=== PATIENT | male | born 1965 | race Caucasian/White ===

== ENCOUNTER 2019-11-04 18:02 | Outpatient (REF) | payer MEDICARE, MEDICAID, SELFPAY ==
[2019-11-06 08:54] LABS: PSA, Diagnostic 3.6 ng/mL (0.0-3.5)
== END 2019-11-04 18:22 ==
LOC: NCHCN 18:02
PROVIDERS: Visit Provider Physician Assistant
DX: R97.20 Elevated prostate specific antigen [PSA] (principal)
CPT/HCPCS: 84153

== ENCOUNTER 2020-08-24 09:16 | Outpatient (REF) | payer MEDICARE, MEDICAID, SELFPAY ==
[2020-08-24 14:23] LABS: ALT 36 U/L (16-63); AST 17 U/L (15-37); Albumin 3.7 g/dL (3.4-5.0); Alkaline Phosphatase 110 U/L (46-116); Anion Gap 10.8 mmol/L (3-11); BUN 12 mg/dL (7-18); Bilirubin, Total 0.7 mg/dL (0.2-1.0); CO2 26.2 mmol/L (21.0-32.0); Calculated LDL 60 mg/dL (<100); Chloride 103 mmol/L (98-107); Cholesterol 135 mg/dL (<200); Glucose 98 mg/dL (74-106); HDL Cholesterol 27 mg/dL (40-60); Potassium 4.3 mmol/L (3.5-5.1); Sodium 140 mmol/L (136-145); Total Protein 7.3 g/dL (6.4-8.2); Triglyceride 244 mg/dL (<150)
[2020-08-24 14:26] LABS: Hemoglobin A1C 6.8 % (<5.7)
[2020-08-24 22:31] LABS: PSA, Diagnostic 4.4 ng/mL (0.0-3.5)
== END 2020-08-24 09:17 | disposition home or self-care (01) ==
LOC: NCHCN 09:16
PROVIDERS: PCP Physician Assistant; Visit Provider Physician Assistant
DX: E11.9 Type 2 diabetes mellitus without complications (principal); E78.5 Hyperlipidemia, unspecified; R97.20 Elevated prostate specific antigen [PSA]
CPT/HCPCS: 80053; 80061; 83036; 84153

== ENCOUNTER 2021-02-28 19:04 | Outpatient (REF) | payer MEDICARE, MEDICAID, SELFPAY | END 2021-02-28 19:05 | disposition home or self-care (01) | LOC: NCHCN 19:04 | PROVIDERS: PCP Physician Assistant; Visit Provider Physician Assistant | DX: R97.20 Elevated prostate specific antigen [PSA] (principal) | CPT/HCPCS: 84153 ==

== ENCOUNTER 2021-08-30 18:21 | Outpatient (REF) | payer MEDICARE, MEDICAID, SELFPAY ==
[2021-08-30 16:44] LABS: Hemoglobin A1C 6.6 % (<5.7)
[2021-08-30 22:51] LABS: PSA, Diagnostic 6.5 ng/mL (<=3.5)
[2021-08-31 09:50] LABS: Hepatitis C Ab w Rflx HCV PCR Negative (Negative)
[2021-08-31 10:03] LABS: HIV-1/2 Ag & Ab Screen Negative (Negative)
== END 2021-08-30 18:22 | disposition home or self-care (01) ==
LOC: NCHCN 18:21
PROVIDERS: PCP Physician Assistant; Visit Provider Physician Assistant
DX: R97.20 Elevated prostate specific antigen [PSA] (principal); Z11.4 Encounter for screening for human immunodeficiency virus [HIV]; Z11.59 Encounter for screening for other viral diseases; E11.9 Type 2 diabetes mellitus without complications
CPT/HCPCS: 86803; 87389; 83036; 84153

== ENCOUNTER → 2021-10-24 08:58 | Outpatient (BNVA) | payer MEDICARE, MEDICAID, SELFPAY | PROVIDERS: PCP Physician Assistant; Referring Provider Physician Assistant; Visit Provider Nurse Practitioner Gerontology | DX: N40.1 Benign prostatic hyperplasia with lower urinary tract symptoms (principal); R35.0 Frequency of micturition; F84.0 Autistic disorder; R97.20 Elevated prostate specific antigen [PSA] | CPT/HCPCS: 51798; 81003; 99205 ==

== ENCOUNTER 2021-11-09 03:22 | Outpatient (CLI) | payer MEDICARE, MEDICAID, SELFPAY ==
[2021-11-09 08:44] LABS: CREATININE 0.9 mg/dL (0.70-1.30)
== END 2021-11-09 03:23 | disposition home or self-care (01) ==
LOC: LBO 03:23
PROVIDERS: PCP Physician Assistant; Visit Provider Nurse Practitioner Gerontology
DX: R97.20 Elevated prostate specific antigen [PSA] (principal); Z01.812 Encounter for preprocedural laboratory examination
CPT/HCPCS: 36415; 82565

== ENCOUNTER → 2021-12-13 09:31 | Outpatient (BNVA) | payer MEDICARE, MEDICAID, SELFPAY | PROVIDERS: PCP Physician Assistant; Referring Provider Physician Assistant; Visit Provider Surgery | DX: Z12.11 Encounter for screening for malignant neoplasm of colon (principal); Z12.12 Encounter for screening for malignant neoplasm of rectum; R19.5 Other fecal abnormalities ==

== ENCOUNTER 2021-12-26 09:18 | Day surgery (SDC) | payer MEDICARE, MEDICAID, SELFPAY ==
--- NOTE | 2021-12-26 04:36 | W.ANESPRE ---
General Info Date of Service Date Performed: 12/26/21 Height: 5 ft 6 in Weight: 77.224 kg Body Mass Index (BMI): 27.4 Surgical Procedure: Operation Date: 12/26/21 11:05 Proposed Procedure Side Surgeon p Colonoscopy April Chandra MD Meds Allergies and Home Medications Allergies Allergy/AdvReac Type Severity Reaction Status Date / Time Penicillins Allergy Unknown Unverified 12/26/21 09:00 Home Medication Medication Instructions Recorded atorvastatin 20 mg tablet 20 mg PO DAILY 09/02/21 calcium carb-vit D3-minerals 600 2 tab PO DAILY 09/02/21 mg calcium-400 unit tablet cetirizine 10 mg capsule (All Day 10 mg PO DAILY PRN 09/02/21 Allergy (cetirizine)) citalopram 40 mg tablet 40 mg PO DAILY 09/02/21 metformin 500 mg tablet 500 mg PO BID 09/02/21 polyethylene glycol 3350 17 17 g PO DAILY PRN 09/02/21 gram/dose oral powder (Miralax) bisacodyl 5 mg tablet,delayed 5 mg PO ONCE #4 tabs 12/13/21 release (Dulcolax (bisacodyl)) polyethylene glycol 3350 17 17 g PO ONCE #238 grams 12/13/21 gram/dose oral powder ondansetron HCl 4 mg tablet 4 mg PO Q8H PRN nausea and 12/23/21 vomiting #3 tabs Current Visit Medications: Current Medications Generic Name Dose Route Start Last Admin Trade Name Freq PRN Reason Stop Dose Admin Ringer's Solution 1,000 mls @ 80 mls/hr 12/26/21 06:00 IV 01/22/22 23:59 INFUSION HANNA IV Miscellaneous Supplies 1 each 12/26/21 06:00 Iv Access IV 01/22/22 23:59 DIRECTED HANNA Sodium Chloride 0 ml 12/26/21 06:00 Normal Saline Flush 10 Ml Syr IV 01/22/22 23:59 PRN PRN Sodium Chloride 0 ml 12/26/21 06:00 Normal Saline 10 Ml Vial IJ 01/22/22 23:59 DIRECTED PRN Sterile Water 0 ml 12/26/21 06:00 Water,Injection,Sterile 10 Ml Vial IJ 01/22/22 23:59 DIRECTED PRN PFSH Active Problems Active Problems: Problem Status Onset Code Encounter for colorectal cancer screening Z12.11, Z12.12 Positive colorectal cancer screening using Cologuard test R19.5 Medical History Medical History Autistic disorder Diabetes Elevated PSA AWA (generalized anxiety disorder) GERD (gastroesophageal reflux disease) HLD (hyperlipidemia) Onychomycosis Sleep apnea Surgical History Surgical History (Updated 12/26/21 @ 09:44 by Eneida Hernandez) History of appendectomy Tobacco Smoking/Tobacco Use Status: Never Alcohol Alcohol Intake: current Substance Use Substance use type: does not use Vital Signs and Lab Results Vital Signs Most Recent Vital Signs in EMR: Temp Pulse Resp BP Pulse Ox 36.5 C 67 18 136/84 100 12/26/21 09:20 12/26/21 09:20 12/26/21 09:20 12/26/21 09:20 12/26/21 09:20 Lab Results Blood Type / Crossmatch: No Data to Display Complete Blood Count: No Data to Display Complete Metabolic Panel: No Data to Display Liver Function Panel: No Data to Display Coagulation Panel: No Data to Display Cardiac Panel: No Data to Display Arterial Blood Gas: No Data to Display Venous Blood Gas: No Data to Display Pancreas Panel: No Data to Display Thyroid Panel: No Data to Display Infectious Disease: No Data to Display Blood Cultures: No Data to Display Toxicology Panel: No Data to Display Anesthesia Assessment and Plan Anesthesia History Personal History: Unknown Anesthesia History Family History: Family History Unknown Exercise Tolerance Exercise Tolerance: Metabolic Equivalents>4 Cardiac & Pulmonary Exam Cardiac Exam: Normal S1/S2 Heart Sounds Pulmonary Exam: Clear Bilateral Breath Sounds Implantable Cardiac Device Does patient have a Pacemaker or an ICD?: No Airway Exam Known Difficult Airway: No Mallampati Class: 2 Mouth Opening: Narrow (< 3cm) Thyromental Distance: Greater than 3 cm Neck Range of Motion: Full ROM Neck Circumference: Normal Teeth Condition: Normal Dentition ASA Classification ASA Score: ASA 2 Emergency Case?: No NPO Status NPO Status: NPO Clears >2 hours, Solids >8 hours Anesthesia Plan Resuscitation Status: Full Code Anesthesia Technique: General Anesthesia Airway Planned: Natural Airway Monitors Used: Standard Monitors Preoperative Comments:: 56 yo male for colo. Sig PMHx: autistic, DM (last A1c 6.6, metformin), GERD, SANDY,
--- NOTE | 2021-12-26 06:45 | COLE_ITS ---
Colonoscopy Report Date of procedure: 12/26/21 Pre-op diagnosis general: + Cologuard, screening Post-op diagnosis procedure note: other (polyps) Procedure: Colonoscopy with polypectomy Surgeon: April Chandra Anesthesia Type: General:No Airway Estimated blood loss (mL): 5 Pathology: other (Ascending polyps x2, Transverse polyp, descending polyp, sigmoid polyps x2, rectal polyp x2) Complications: None Disposition: same day Indications: The patient? is a pleasant? 56-year-old male who is here to discuss a screening colonoscopy.? He had a Positive Cologuard test.? He denies any unintentional weight loss or family history of colon cancer.? He has been having loose stools but has to strain to be able to have a bowel movement.? There is bright red blood noted with every bowel movement by his caregiver.? The procedure and risks were discussed with his guardian, Melissa Morley ( ).? The prep was reviewed in detail.? Risks, benefits and complications have been reviewed. Complications include but are not limited to bleeding, pain, perforation, missed small lesion/polyp, sore throat, aspiration and adverse reaction to the medications. Questions were entertained and answered to their satisfaction and they wished to proceed. No guarantees were given or implied. Prep: Miralax/Dulcolax Procedure Start Time: 11:06 Procedure End Time: 11:39 Retraction Time: 16 minutes Findings: Multiple polyps Procedure Description: After informed consent was obtained the patient was taken to the procedure room and placed in a left decubitous position. Monitors were applied and a time out was done. The patients name, date of , procedure, allergies to medications and metal in their body was reviewed. The patient was then sedated. Once sedated and comfortable a rectal exam was done. External exam was normal. Internal exam revealed a normal sphincter tone and no palpable masses. The prostate felt smooth. The scope was then introduced and retro-flexed. No internal hemorrhoids, polyps or masses were identified on retro-flexion. The scope was then advanced to the cecum without difficulty. The ileocecal vlave and appendiceal orifice were identified. The prep was adequate. The scope was then slowly retracted over 16 minutes back into the rectum. Polyps were removed with cold snare in the ascending colon and transverse colon and with cold forceps in the ascending colon, descending colon, sigmoid colon x2 and rectum x2. There was no diverticulosis noted. The scope was removed and the patient was woken up and taken back to Same day surgery in stable condition. The patient tolerated the procedure well and there were no immediate complicatio ns.
--- NOTE | 2021-12-26 06:49 | W.PM.DSUDISC ---
Discharge Plan Disposition Patient Disposition: HOME Condition: Good Discharge Details Reason For Visit: Colonoscopy Attending Provider: April Chandra Primary Care Provider: Alexi Briceno Home Meds and New Rx's Prescriptions: Continued polyethylene glycol 3350 17 gram/dose powder 17 g PO ONCE Qty: 238 0RF Rx Instructions: To be taken as directed by prescriber's office for colonoscopy prep. calcium carbonate-vit D3-min 600 mg calcium- 400 unit tablet 2 tab PO DAILY atorvastatin 20 mg tablet 20 mg PO DAILY metformin 500 mg tablet 500 mg PO BID citalopram 40 mg tablet 40 mg PO DAILY All Day Allergy (cetirizine) 10 mg capsule 10 mg PO DAILY PRN ondansetron HCl 4 mg tablet 4 mg PO Q8H PRN (Reason: nausea and vomiting) Qty: 3 0RF Rx Instructions: take one tab by mouth if needed for nausea during bowel prep Discontinued bisacodyl [Dulcolax (bisacodyl)] 5 mg tablet,delayed release (DR/EC) 5 mg PO ONCE Qty: 4 0RF Rx Instructions: Take according to provider's instructions for colonoscopy prep. polyethylene glycol 3350 [Miralax] 17 gram/dose powder 17 g PO DAILY PRN Discharge Instructions Instructions: Colorectal Polyps (DC) Additional Instructions: Findings: multiple polyps Follow up: 3-5 years depending on pathologyr esults Please call if you develop: fevers >101.5 Nausea or Vomiting Abdominal pain that is not transient Rectal bleeding that is more then a tbsp A hard abdomen and inability to pass gas DAY SURGERY UNIT POST ENDOSCOPY INSTRUCTIONS Instructions for everyone who is given Anesthesia: For your safety, please do the following for the next 24 Hours: a. Do not drive or operate dangerous equipment b. Do not drink alcohol beverages or use any recreational drugs for the first 24 hours or while taking pain medications. The medications in your body may have a reaction that can be dangerous. c. Do not make any important decisions or sign any important papers 1. Generally there are no restrictions on your activity after a day or so has gone by, but you may feel a bit fatigued for a few days. 2. After you arrive home you may have a light meal and return to a normal diet as you can tolerate it without feeling sick to your stomach. 3. After surgery, you may feel pain or discomfort. This should be only transient, but if it persists please contact your doctor. 4. If there are any questions regarding the findings of your procedure, please feel free to contact your doctor. 6. If you are unable to contact your doctor with a problem, contact the hospital at [phone]. 7. Continue all your regular medications unless directed otherwise. I understand the above instructions and have no questions. Signature of Patient or Responsible Adult Escort Date/Time Name of Responsible Adult Escort Signature of Nurse Date/Time Activity:: Activity as Tolerated Diet:: As Tolerated Discharge Orders Discharge Orders: Discharge Order (Routine); Ordered 12/26/21 Ordered By: April Chandra
[2021-12-26 09:20] VITALS: BP 136/84; PULSE 67; RESP 18; TEMP 36.5; O2SAT 100
[2021-12-26] MEDS: Lactated Ringers 1,000 ML 80 ML IV (10:05)
[2021-12-26 10:38] VITALS: BMI 27.4
--- NOTE | 2021-12-26 11:21 | BOWEL_PTH ---
PATIENT: Marion Olvera LOC: [facility] U#:[id number] AGE/SX: 56/M ROOM: RE12/26/[address]: April Chandra MD : 1965 BED: DIS: 12/26/2021 SPEC #: [id number] RECD: 12/26/21 12:46 STATUS: VALDEMAR RE #: [id number] MARCELLUS: 12/26/21 11:[address]: April Chandra DEPT: Surgical Specimen RECD BY: July Whitaker ENTERED: 12/26/21 12:48 SP TYPE: Bowel OTHR DR: Alexi Briceno Tissues: 1 - BIOPSY BOWEL 2 - BIOPSY BOWEL 3 - BIOPSY BOWEL 4 - BIOPSY BOWEL 5 - BIOPSY BOWEL Procedures: GROSS AND MICRO LEVEL 4 Comments: [id number]
[2021-12-26 11:48] VITALS: BP 101/73; PULSE 63; RESP 16; TEMP 36.2; O2SAT 98
--- NOTE | 2021-12-26 11:58 | W.ANESPOSTOP ---
Postoperative Evaluation Date, Time and Location Date Performed: 12/26/21 Time Performed: 11:58 Patient Location: Day Surgery Unit Vital Signs Most Recent Imported Vital Signs: Most Recent Vital Signs Temp Pulse Resp BP Pulse Ox 36.2 C L 63 16 101/73 98 12/26/21 11:48 12/26/21 11:48 12/26/21 11:48 12/26/21 11:48 12/26/21 11:48 Pain Score Most Recent Pain Score: Most Recent Pain Score Pain Level 0 12/26/21 11:48 Assessment Mental Status: Awake (Alert & Oriented to Patient Baseline) Airway and Respiratory Function: Patent airway with normal (patient baseline) respiratory exam Cardiovascular Function: Hemodynamically Stable Hydration Status: Adequately Hydrated Nausea & Vomiting: No Nausea or Vomiting Pain: Pt. Denies Any Pain Peripheral Nerve Block: Patient did not receive a nerve block
== END 2021-12-26 12:35 | disposition home or self-care (01) ==
PROVIDERS: PCP Physician Assistant; Visit Provider Surgery
PROC: 0DJD8ZZ Inspection of Lower Intestinal Tract, Via Natural or Artificial Opening Endoscopic (ICD-10-PCS; CPT 45378; principal; 2021-12-26 11:00)
DX: K63.5 Polyp of colon (principal); K62.1 Rectal polyp; E11.9 Type 2 diabetes mellitus without complications
CPT/HCPCS: 45385; 45380; 88305

== ENCOUNTER → 2021-12-30 11:02 | Outpatient (BNVA) | payer MEDICARE, MEDICAID, SELFPAY | PROVIDERS: PCP Physician Assistant; Referring Provider Physician Assistant; Visit Provider Urology | DX: F84.0 Autistic disorder (principal); R97.20 Elevated prostate specific antigen [PSA] | CPT/HCPCS: 99214 ==

== ENCOUNTER 2022-03-07 03:17 | Outpatient (CLI) | payer MEDICARE, MEDICAID, SELFPAY ==
[2022-03-07 18:17] LABS: PSA, Diagnostic 7.3 ng/mL (<=3.5)
== END 2022-03-07 03:18 | disposition home or self-care (01) ==
LOC: LBO 03:17
PROVIDERS: PCP Physician Assistant; Visit Provider Urology
DX: R97.20 Elevated prostate specific antigen [PSA] (principal)
CPT/HCPCS: 36415; 84153

== ENCOUNTER 2022-03-10 16:39 | Outpatient (REF) | payer MEDICARE, MEDICAID, SELFPAY ==
[2022-03-10 18:33] LABS: Hemoglobin A1C 6.1 % (<5.7)
[2022-03-10 18:37] LABS: ALT 20 U/L (16-63); AST 17 U/L (15-37); Albumin 3.6 g/dL (3.4-5.0); Alkaline Phosphatase 122 U/L (46-116); Anion Gap 6.2 mmol/L (3-11); BUN 13 mg/dL (7-18); Bilirubin, Total 0.8 mg/dL (0.2-1.0); CO2 29.8 mmol/L (21.0-32.0); CREATININE 0.9 mg/dL (0.70-1.30); Calcium 9.6 mg/dL (8.5-10.1); Calculated LDL 67 mg/dL (<100); Chloride 103 mmol/L (98-107); Cholesterol 142 mg/dL (<200); Estimated GFR 100.24 (mL/min/1.73m2); Glucose 131 mg/dL (74-106); HDL Cholesterol 32 mg/dL (40-60); Potassium 3.6 mmol/L (3.5-5.1); Sodium 139 mmol/L (136-145); Total Protein 6.9 g/dL (6.4-8.2); Triglyceride 219 mg/dL (<150)
== END 2022-03-10 16:40 | disposition home or self-care (01) ==
LOC: NCHCN 16:39
PROVIDERS: PCP Physician Assistant; Visit Provider Physician Assistant
DX: E11.9 Type 2 diabetes mellitus without complications (principal); E78.5 Hyperlipidemia, unspecified
CPT/HCPCS: 80053; 80061; 83036

== ENCOUNTER → 2022-03-14 07:55 | Outpatient (BNVA) | payer MEDICARE, MEDICAID, SELFPAY | PROVIDERS: PCP Physician Assistant; Referring Provider Physician Assistant; Visit Provider Urology | DX: R35.0 Frequency of micturition (principal); R97.20 Elevated prostate specific antigen [PSA] | CPT/HCPCS: 51798; 99214 ==

== ENCOUNTER 2022-03-23 08:23 | Emergency (ER) | payer MEDICARE, MEDICAID, SELFPAY ==
[2022-03-23 08:39] VITALS: BP 141/77; PULSE 90; RESP 17; TEMP 37.3; O2SAT 96
--- NOTE | 2022-03-23 08:51 | ED.GENADUL_ITS ---
Discharge Plan Disposition Patient Disposition: Home Condition: Stable Discharge Details Clinical Impression: Constipation, Enlarged prostate, Hiatal hernia Primary Care Provider: Alexi Briceno ED Provider: Lilia White Home Meds and New Rx's Prescriptions: Continued polyethylene glycol 3350 17 gram/dose powder 17 g PO ONCE Qty: 238 0RF Rx Instructions: To be taken as directed by prescriber's office for colonoscopy prep. calcium carbonate-vit D3-min 600 mg calcium- 400 unit tablet 2 tab PO DAILY atorvastatin 20 mg tablet 20 mg PO DAILY metformin 500 mg tablet 500 mg PO BID citalopram 40 mg tablet 40 mg PO DAILY All Day Allergy (cetirizine) 10 mg capsule 10 mg PO DAILY PRN ondansetron HCl 4 mg tablet 4 mg PO Q8H PRN (Reason: nausea and vomiting) Qty: 3 0RF Rx Instructions: take one tab by mouth if needed for nausea during bowel prep Discharge Instructions Instructions: Constipation (ED), Abdominal Pain (ED) Additional Instructions: CT shows constipation, a hiatal hernia, and very large prostate measuring 5 cm. Please follow-up with urology regarding the enlarged prostate. Follow up with primary care provider in 3-5 days. Return to ED sooner if any worsening or concerns. Increase oral fluids. You may try glycerin suppositories and/or MiraLAX ensc-ynk-ujswlyc laxatives for the next 1 to 2 days. Referrals: Alexi Briceno [Primary Care Provider] - 1 week Sacha Vance MD [ [facility] STAFF PHYSICIAN] - 1 week Discharge Data Discharge Date/Time-TO BE ENTERED AT DEPARTURE: 03/23/22 13:35 Medical Decision Making 56-year-old male with a past medical history of autism who is nonverbal, diabetes, generalized anxiety disorder hyperlipidemia and elevated PSA presents to the ER accompanied by his caregiver with chief complaint of abdominal pain which began this morning. Patient's caregiver states that he pointed her stomach this morning and asked to be brought to the doctor after eating breakfast. Blood work ordered including CBC CMP lipase urinalysis. Will consider CT abdomen pelvis. At the bedside by director of midwifery/staff midwife. Attempting to get in and out catheter for urinalysis specimen. On exam he is uncircumcised, he does have a very very sm all urethral opening and a questionable second opening just superior to this which would indicate hypospadias. Bladder scan showed over 200 cc of urine in bladder. 1030 Woodrow at bedside for patient evaluation at my request, he recommends condom catheter placement we will give 500 cc of fluid see if patient will pee on his own. Will consider Butcher catheter if unable to urinate. Patient was able to urinate in the condom catheter after [address] shows constipation, hiatal hernia and enlarged prostate. I did discuss the results with the caregiver. We will give a fleets enema here in the department prior to discharge. 1226: Fleets enema unsuccessful. Will order a glycerin suppository. Glycerin suppository was unsuccessful was not retained. An additional soapsuds enema ordered. Soapsuds enema successful patient had produced about 4 large balls of stool. Will discharge patient to home. Patient continues to have very large bowel movement feels better. Prior to being discharged. This text was generated using [employer] system, please disregard any oddities of phrase or misspellings. Medical Records Medical records reviewed: Yes I reviewed the patient's medical records. Lab Data Lab results reviewed: Yes I reviewed the patient's lab results. Labs: Laboratory Tests Range/Units 03/23/22 03/23/22 09:01 09:01 WBC (4.4-10.8) 10^3/uL 7.99 RBC (4.36-5.78) 10^6/uL 4.86 Hgb (13.5-17.5) g/dL 11.8 L Hct (40.0-50.0) % 37.3 L MCV (80-95) fL 77 L MCH (27.0-33.0) pg 24.3 L MCHC (32.0-36.0) % 31.6 L RDW (11.8-14.1) % 14.9 H Plt Count (130-400) 10^3/uL 299 MPV (8.0-11.0) fL 8.6 Immature Gran % 0.6 Neutrophils % 74.5 Lymphocytes % 18.3 Monocytes % 5.5 Eosinophils % 0.8 Basophils % 0.3 Nucleated RBC % (0.0-0.3) % 0.0 Absolute Neutrophils (1.2-6.7) 10^3/uL 5.96 Absolute Lymphocytes (1.2-3.4) 10^3/uL 1.46 Absolute Monocytes (0.1-0.8) 10^3/uL 0.44 Absolute Eosinophils (0.0-0.7) 10^3/uL 0.06 Absolute Basophils (0.0-0.2) 10^3/uL 0.02 Sodium (136-145) mmol/L 138 Potassium (3.5-5.1) mmol/L 3.6 Chloride (98-107) mmol/L 101 Carbon Dioxide (21.0-32.0) mmol/L 28.6 Anion Gap (3-11) mmol/L 8.4 BUN (7-18) mg/dL 22 H Creatinine (0.70-1.30) mg/dL 1.0 Est GFR (CKD-EPI 2020) (mL/min/1.73m2) 88.33 Glucose (74-106) mg/dL 169 H Calcium (8.5-10.1) mg/dL 9.3 Magnesium (1.8-2.4) mg/dL 2.0 Total Bilirubin (0.2-1.0) mg/dL 0.9 AST (15-37) U/L 13 L ALT (16-63) U/L 17 Alkaline Phosphatase (46-116) U/L 94 Total Protein (6.4-8.2) g/dL 8.1 Albumin (3.4-5.0) g/dL 3.8 Lipase (73-393) U/L 95 Sign Out No HPI General Mode of arrival: ambulatory . Date/Time Provider Initiated Documentation: 03/23/22 08:38 . Limitations to Documentation: physical limitation (Autistic, nonverbal) . Information obtained by: family (Caregiver), RN notes reviewed and old records reviewed . HPI Narrative: 56-year-old male with a past medical history of autism who is nonverbal, diabetes, generalized anxiety disorder hyperlipidemia and elevated PSA presents to the ER accompanied by his caregiver with chief complaint of abdominal pain which began this morning. Patient's caregiver states that he pointed her stomach this morning and asked to be brought to the doctor after eating breakfast. She denies any nausea vomiting she reports diarrhea couple of days ago none currently. History is limited due to patient being nonverbal abdomen is soft with palpation. Surgical history includes appendectomy. Related Data Home Medications Medication Instructions Recorded Confirmed atorvastatin 20 mg tablet 20 mg PO DAILY 09/02/21 03/23/22 calcium carb-vit D3-minerals 600 2 tab PO DAILY 09/02/21 03/23/22 mg calcium-400 unit tablet cetirizine 10 mg capsule (All Day 10 mg PO DAILY PRN 09/02/21 03/23/22 Allergy (cetirizine)) citalopram 40 mg tablet 40 mg PO DAILY 09/02/21 03/23/22 metformin 500 mg tablet 500 mg PO BID 09/02/21 03/23/22 polyethylene glycol 3350 17 17 g PO ONCE #238 grams 12/13/21 03/23/22 gram/dose oral powder ondansetron HCl 4 mg tablet 4 mg PO Q8H PRN nausea and 12/23/21 03/23/22 vomiting #3 tabs Previous Rx's Medication Instructions Recorded polyethylene glycol 3350 17 17 g PO ONCE #238 grams 12/13/21 gram/dose oral powder ondansetron HCl 4 mg tablet 4 mg PO Q8H PRN nausea and 12/23/21 vomiting #3 tabs Allergies Allergy/AdvReac Type Severity Reaction Status Date / Time Penicillins Allergy Unknown Unverified 03/23/22 08:43 General Stated Complaint: Abd Prob RHYS: 3 Review of Systems Unobtainable due to (Limited due to nonverbal) Gastrointestinal Gastrointestinal: Reports as per HPI, Reports abdominal pain, Denies diarrhea, Denies nausea and Denies vomiting PFSH All Active Problems (Updated 03/23/22 @ 11:42 by Lilia White NP) Constipation (Acute) Enlarged prostate (Acute) Hiatal hernia (Chronic) Lower urinary tract symptoms (LUTS) (Acute) Serrated adenoma of colon (Acute) Tubular adenoma of colon (Acute) Hyperplastic colon polyp (Acute) Positive colorectal cancer screening using Cologuard test (Acute) Encounter for colorectal cancer screening (Acute) Medical History Autistic disorder Diabetes Elevated PSA AWA (generalized anxiety disorder) GERD (gastroesophageal reflux disease) HLD (hyperlipidemia) Onychomycosis Sleep apnea Surgical History History of appendectomy History of colonoscopy (~11/2021) Social History Smoking/Tobacco Use Status: Never Smoking risk assessment performed?: Yes Alcohol Intake: never Drug use: Never Substance use type: does not use Additional [facility] history[facility] N[facility] Exam Narrative: Constitutional: Patient nonverbal, autistic Appears stated age. Normal body habitus. Head: Normocephalic, no trauma. Eyes: Pupils PERRL, Red reflex noted, EOM's intact. Eyelids symmetrical without lesions, discharge, or swelling. ENT: Bilateral TM's WNL, External ear normal to inspection, no mastoid TTP, swelling, or erythema, Nasal turbinates WNL, no nasal discharge. Normal dentition, Posterior pharynx WNL, no exudate. Chest: RRR, Normal S1, S2, distal pulses intact. Resp: Lungs clear to auscultation bilaterally, no wheezes, rales, or rhonchi. Abdomen: Soft, non-distended, Normoactive bowel sounds all 4 quads. Musculoskeletal: Normal gait, 5/5 strength to all four extremities. Skin: No suspicious rashes or lesions. Capillary refill less than 2 sec. Neurologic: Cranial nerves II-XII intact. Has motor tics and is non verbal Motor: No deficits noted. Sensory: Intact bilaterally all 4 extremities. Reflexes: DTR's intact bilaterally.. Hematologic/Lymphatic: No ecchymosis, no lymphadenopathy. Meatus: hypospadias (Very small urethral opening and a second opening superior, ) Course Vital Signs Vital signs: Vital Signs Temperature 37.3 C 03/23/22 08:39 Pulse 90 03/23/22 08:39 Respiratory Rate 17 03/23/22 08:39 Blood Pressure 141/77 H 03/23/22 08:39 Pulse Oximetry 96 03/23/22 08:39 Temperature 37.3 C 03/23/22 08:39 Temperature Source Temporal Artery Scan 03/23/22 08:39 Pulse 90 03/23/22 08:39 Respiratory Rate 17 03/23/22 08:39 Respiratory Effort 03/23/22 08:41 Blood Pressure 141/77 H 03/23/22 08:39 Blood Pressure Position Sitting 03/23/22 08:39 Pulse Oximetry 96 03/23/22 08:39 Oxygen Delivery Method Room Air 03/23/22 08:39 Oxygen Flow Rate 0 03/23/22 08:39
[2022-03-23 09:11] LABS: Abs Immature Grans 0.05 10^3/uL (0.0-0.06); Absolute Basophil Count 0.02 10^3/uL (0.0-0.2); Absolute Eosinophil Count 0.06 10^3/uL (0.0-0.7); Absolute Lymphocyte Count 1.46 10^3/uL (1.2-3.4); Absolute Monocyte Count 0.44 10^3/uL (0.1-0.8); Absolute Neutrophil Count 5.96 10^3/uL (1.2-6.7); Basophils % 0.3; Eosinophils % 0.8; HCT 37.3 % (40.0-50.0); HGB 11.8 g/dL (13.5-17.5); Immature Grans % 0.6; Lymphocytes % 18.3; MCH 24.3 pg (27.0-33.0); MCHC 31.6 % (32.0-36.0); MCV 77 fL (80-95); MPV 8.6 fL (8.0-11.0); Monocytes % 5.5; Neutrophils % 74.5; Platelet Count 299 10^3/uL (130-400); RBC 4.86 10^6/uL (4.36-5.78); RDW 14.9 % (11.8-14.1); RDW-SD 41.3 fL; WBC 7.99 10^3/uL (4.4-10.8)
[2022-03-23 09:26] LABS: ALT 17 U/L (16-63); AST 13 U/L (15-37); Albumin 3.8 g/dL (3.4-5.0); Alkaline Phosphatase 94 U/L (46-116); Anion Gap 8.4 mmol/L (3-11); BUN 22 mg/dL (7-18); Bilirubin, Total 0.9 mg/dL (0.2-1.0); CO2 28.6 mmol/L (21.0-32.0); Calcium 9.3 mg/dL (8.5-10.1); Chloride 101 mmol/L (98-107); Estimated GFR 88.33 (mL/min/1.73m2); Glucose 169 mg/dL (74-106); Lipase 95 U/L (73-393); Potassium 3.6 mmol/L (3.5-5.1); Sodium 138 mmol/L (136-145); Total Protein 8.1 g/dL (6.4-8.2)
[2022-03-23] MEDS: Normal Saline 500 ML IV (10:00)
--- NOTE | 2022-03-23 10:15 | DI.CT_ITS ---
Exam(s) CT ABDOMEN PELVIS W EXAM: CT ABDOMEN PELVIS W CLINICAL HISTORY: Abdominal pain TECHNIQUE: COMPARISON: No exams were available for comparison FINDINGS: CT examination of the abdomen and pelvis was performed with bolus infusion of 100 cc of Omnipaque 350 . Images obtained through the lung bases are unremarkable. There is a large hiatal hernia containing much of the stomach. The liver appears normal with no evidence of a focal mass. Spleen is unremarkable in appearance.. Gallbladder and bile ducts are unremarkable. Pancreas is unremarkable in appearance. Adrenals appear normal bilaterally. Kidneys appear normal with no evidence of renal mass, hydronephrosis, or nephrolithiasis. There is a n apparent 4-5 millimeter in diameter simple cyst of the right kidney.unremarkable bladder. There is no evidence of abdominal or pelvic adenopathy. Abdominal aorta is of normal diameter and no abnormality is seen involving major visceral branches.. Appendix is nonvisualized and vascular clips at the cecal tip are consistent with prior appendectomy period. No evidence diverticulitis or bowel obstruction. No significant abdominal wall hernia seen. Note is made of constipation with dilated rectum. Question rectal wall thickening, consider stercora l proctitis. Impression: Constipation with question stercoral proctitis.. RADIATION DOSE DELIVERED: Total DLP Total DLP DATA REPOSITORY: All CT scans at this facility are submitted to the National Radiology Data Registry (NRDR) Dose Index Registry (DIR) with the [employer] (ACR). RADIATION OPTIMIZATION: All CT scans at this facility use at least one of these dose optimization te chniques: automated exposure control; mA and/or kV adjustment per patient size (includes targeted exa ms where dose is matched to clinical indication); or iterative reconstruction.
[2022-03-23] MEDS: Omnipaque 350 MG/ML 100 ML BTL IJ (10:50)
[2022-03-23] MEDS: Normal Saline - Diluent 50 ML VIAL IJ (10:50)
--- NOTE | 2022-03-23 11:20 | DI.VRAD_ITS ---
PROCEDURE INFORMATION: Exam: CT Abdomen And Pelvis With Contrast Exam date and time: 03/23/2022 10:38 AM Age: 56 years old Clinical indication: Abdominal pain; Additional info: 100 ml contrast, best images possible PT non verbal and unable to follow directions TECHNIQUE: Imaging protocol: Computed tomography of the abdomen and pelvis with contrast. COMPARISON: No relevant prior studies available. FINDINGS: Diaphragm: Large hiatal hernia. Much of the stomach is herniated into the chest. Liver: Normal. No mass. Gallbladder and bile ducts: Normal. No calcified stones. No ductal dilation. Pancreas: Normal. No ductal dilation. Spleen: Normal. No splenomegaly. Adrenal glands: Normal. No mass. Kidneys and ureters: 4.3 cm simple cyst posterior right kidney. Stomach and bowel: The rectum is distended 6 cm with fecal material . Findings consistent with constipation.. Appendix: Surgical clips in the right lower quadrant may indicate prior appendectomy Intraperitoneal space: Unremarkable. No free air. No significant fluid collection. Vasculature: Unremarkable. No abdominal aortic aneurysm. Lymph nodes: Unremarkable. No enlarged lymph nodes. Urinary bladder: Unremarkable as visualized. Reproductive: The prostate is enlarged, greater than 5 cm. Recommend urology consult. Bones/joints: 8-9 mm sclerotic density noted in the T9, compatible with bone island (enostosis) in patient without history of neoplastic disease. Nuclear medicine bone scan may be useful for further evaluation if clinically indicated. Soft tissues: Unremarkable. IMPRESSION: 1. Large hiatal hernia. Much of the stomach is herniated into the chest. 2. The rectum is distended 6 cm with fecal material . Findings consistent with constipation.. 3. The prostate is enlarged, greater than 5 cm. Recommend urology consult. Dictated and Authenticated by: Saran Figueroa MD. Ordering:WOJCIECH Rodrigues MD
[2022-03-23 11:25] LABS: Clarity Clear (Clear)
[2022-03-23 11:26] LABS: Bilirubin Negative (Negative); Blood Negative (Negative); Glucose Negative (Negative); Ketones Negative (Negative); Leukocyte Esterase Negative (Negative); Nitrite Negative (Negative); Specific Gravity >= 1.030 (1.005-1.025); Urobilinogen 0.2 EU/dL (Up TO 0.2)
[2022-03-23 12:17] VITALS: BP 168/104; PULSE 113; TEMP 36.8; O2SAT 97
[2022-03-23] MEDS: Glycerin Adult Suppository JAR 1 SUPP PR (12:32)
[2022-03-23 13:15] VITALS: BP 156/93; PULSE 118; TEMP 37.4; O2SAT 97
== END 2022-03-23 13:35 | disposition home or self-care (01) ==
PROVIDERS: Emergency Provider Registered Nurse Emergency; PCP Physician Assistant
DX: K59.00 Constipation, unspecified (principal); N40.0 Benign prostatic hyperplasia without lower urinary tract symptoms; K44.9 Diaphragmatic hernia without obstruction or gangrene; E11.9 Type 2 diabetes mellitus without complications; E78.5 Hyperlipidemia, unspecified; Q45.9 Congenital malformation of digestive system, unspecified; Z90.49 Acquired absence of other specified parts of digestive tract
CPT/HCPCS: 36415; 80053; 83690; 96360; 99285; 74177; 81003; 83735; 85025; 99284; J3490

== ENCOUNTER 2022-03-26 11:42 | Emergency (ER) | payer MEDICARE, MEDICAID, SELFPAY ==
[2022-03-26 11:50] VITALS: BP 133/82; PULSE 91; RESP 20; TEMP 37.1; O2SAT 97
--- NOTE | 2022-03-26 13:14 | ED.GENADUL_ITS ---
Discharge Plan Disposition Patient Disposition: Home Condition: Improving Discharge Details Clinical Impression: Acute urinary retention Primary Care Provider: Alexi Briceno ED Provider: Ismael Young Home Meds and New Rx's Prescriptions: Continued polyethylene glycol 3350 17 gram/dose powder 17 g PO ONCE Qty: 238 0RF Rx Instructions: To be taken as directed by prescriber's office for colonoscopy prep. calcium carbonate-vit D3-min 600 mg calcium- 400 unit tablet 2 tab PO DAILY atorvastatin 20 mg tablet 20 mg PO DAILY metformin 500 mg tablet 500 mg PO BID citalopram 40 mg tablet 40 mg PO DAILY All Day Allergy (cetirizine) 10 mg capsule 10 mg PO DAILY PRN ondansetron HCl 4 mg tablet 4 mg PO Q8H PRN (Reason: nausea and vomiting) Qty: 3 0RF Rx Instructions: take one tab by mouth if needed for nausea during bowel prep No Action tamsulosin [Flomax] 0.4 mg capsule 0.4 mg PO DAILY Qty: 90 1RF Discharge Instructions Instructions: Urinary Retention in Men (ED), Butcher Catheter Placement and Care (ED) Additional Instructions: Butcher catheter has been placed and urine is draining appropriately. I have placed you on the care management list and the list of urology to help expedite outpatient urology follow-up. Please call the office of Dr. Vance tomorrow. Please watch for new or worsening symptoms and return to the ER for any concerns. Referrals: Sacha Vance MD [ [facility] STAFF PHYSICIAN] - Discharge Data Discharge Date/Time-TO BE ENTERED AT DEPARTURE: 03/26/22 15:44 Medical Decision Making 56-year-old gentleman with known BPH, recent urinary retention, presents having likely not urinated in the past 2-3 days. Clinically he appears well, nontoxic. Bladder scan reveals greater than [address] is to place a Butcher catheter and check a urinalysis. Butcher catheter placed, patient tolerated this well. Over 500 cc drained. Patient admits to feeling much improvement. Urinalysis does not reveal any signs of infection. Discussed indwelling Butcher catheter and leg bag with staff. They are comfortable taking him home in his current condition. I have placed him on the care management team to help expedite outpatient urology follow-up. Standard discharge and return precautions were provided. Patient understands, is agreeable to this plan, and has no additional questions or concerns upon discharge. This documentation was generated using [employer] dictation system, please disregard any oddities of phrase or misspellings. Medical Records Medical records reviewed: Yes I reviewed the patient's medical records. Lab Data Lab results reviewed: Yes I reviewed the patient's lab results. Labs: Laboratory Tests Range/Units 03/26/22 13:35 Urine Color (Yellow) Yellow Urine Clarity (Clear) Clear Urine pH (5-8) 6.0 Ur Specific [place] (1.005-1.025) >= 1.030 H Urine Protein (Negative) mg/dL Negative Urine Ketones (Negative) mg/dL Negative Urine Blood (Negative) Negative Urine Nitrite (Negative) Negative Urine Bilirubin (Negative) Negative Urine Urobilinogen (Up TO 0.2) EU/dL 0.2 Ur Leukocyte Esterase (Negative) Negative Urine Glucose (Negative) mg/dL Negative Sign Out No HPI General Mode of arrival: ambulatory . Date/Time Provider Initiated Documentation: 03/26/22 12:02 . Limitations to Documentation: other (Autism, minimally verbal) . Information obtained by: patient (Home staff) . HPI Narrative: This is a 56-year-old gentleman, past medical history that includes autism, minimally verbal, BPH, hyperlipidemia, diabetes, anxiety, GERD, presenting to the ER today with his home health staff for reevaluation of recurrent urinary retention. Patient recently seen in the ER for abdominal pain, had work-up including CT imaging which revealed constipation, BPH, catheter in and out at that time placed to drain bladder. Staff is unsure whether or not he has urinated since that time. No recent trauma. Denies fever. Reports that he does have a urologist but they were unable to see him over the holidays. HPI is somewhat limited given his primary nonverbal status. Related Data Home Medications Medication Instructions Recorded Confirmed atorvastatin 20 mg tablet 20 mg PO DAILY 09/02/21 03/23/22 calcium carb-vit D3-minerals 600 2 tab PO DAILY 09/02/21 03/23/22 mg calcium-400 unit tablet cetirizine 10 mg capsule (All Day 10 mg PO DAILY PRN 09/02/21 03/23/22 Allergy (cetirizine)) citalopram 40 mg tablet 40 mg PO DAILY 09/02/21 03/23/22 metformin 500 mg tablet 500 mg PO BID 09/02/21 03/23/22 polyethylene glycol 3350 17 17 g PO ONCE #238 grams 12/13/21 03/23/22 gram/dose oral powder ondansetron HCl 4 mg tablet 4 mg PO Q8H PRN nausea and 12/23/21 03/23/22 vomiting #3 tabs tamsulosin 0.4 mg capsule (Flomax) 0.4 mg PO DAILY #90 caps 03/28/22 Previous Rx's Medication Instructions Recorded polyethylene glycol 3350 17 17 g PO ONCE #238 grams 12/13/21 gram/dose oral powder ondansetron HCl 4 mg tablet 4 mg PO Q8H PRN nausea and 12/23/21 vomiting #3 tabs tamsulosin 0.4 mg capsule (Flomax) 0.4 mg PO DAILY #90 caps 03/28/22 Allergies Allergy/AdvReac Type Severity Reaction Status Date / Time Penicillins Allergy Unknown Unverified 03/23/22 08:43 General Stated Complaint: Urinary RHYS: 4 Review of Systems Constitutional Constitutional: Denies fever(s) Cardiovascular Cardiovascular: Denies chest pain Gastrointestinal Gastrointestinal: Reports abdominal pain and Denies vomiting Genitourinary Genitourinary: Denies hematuria and Reports urinary hesitancy Musculoskeletal Musculoskeletal: Denies back pain PFSH All Active Problems Constipation (Acute) Enlarged prostate (Acute) Hiatal hernia (Chronic) Acute urinary retention (Acute) Lower urinary tract symptoms (LUTS) (Acute) Serrated adenoma of colon (Acute) Tubular adenoma of colon (Acute) Hyperplastic colon polyp (Acute) Positive colorectal cancer screening using Cologuard test (Acute) Encounter for colorectal cancer screening (Acute) Medical History Autistic disorder Diabetes Elevated PSA AWA (generalized anxiety disorder) GERD (gastroesophageal reflux disease) HLD (hyperlipidemia) Onychomycosis Sleep apnea Surgical History History of appendectomy History of colonoscopy (~11/2021) Social History Smoking/Tobacco Use Status: Never Smoking risk assessment performed?: Yes Alcohol Intake: never Drug use: Never Substance use type: does not use Do you feel safe at home: Yes Do you feel safe in your relationship?: Yes Additional [facility] history: [facility] Ex[facility] Const General: cooperative, healthy appearing, comfortable and no acute distress Orientation: alert and awake [facility] [place] Head: normal to inspection, normocephalic and atraumatic Face and sinus: normal facial exam Mouth: moist mucous membranes Eyes Conjunctivae: conjunctivae normal Neck Neck: normal visual inspection, full ROM, no meningeal signs, trachea midline and supple Resp Effort & Inspection: normal respiratory effort and able to speak in complete sentences Auscultation: clear to auscultation bilaterally Cardio Rate: regular rate Rhythm: regular rhythm GI Inspection: normal to inspection Palpation: soft, not firm, no guarding, no pulsatile masses and tender (Mild suprapubic region) Auscultation: normal bowel sounds Back/Spine/Pelvis Back: no CVA tenderness and No back tenderness Skin General skin exam: no rashes or lesions noted Neuro General: patient alert, patient awake, moves all extremities and no focal motor deficits Sensory Exam: no sensory deficits noted Psych Appearance: grossly normal Mental Status: mental status grossly normal Course Vital Signs Vital signs: Vital Signs Temperature 37.1 C 03/26/22 11:50 Pulse 91 H 03/26/22 11:50 Respiratory Rate 20 03/26/22 11:50 Blood Pressure 133/82 03/26/22 11:50 Pulse Oximetry 97 03/26/22 11:50 Temperature 37.1 C 03/26/22 11:50 Temperature Source Oral 03/26/22 11:50 Pulse 91 H 03/26/22 11:50 Respiratory Rate 20 03/26/22 11:50 Blood Pressure 133/82 03/26/22 11:50 Blood Pressure Position Sitting 03/26/22 11:50 Pulse Oximetry 97 03/26/22 11:50 Oxygen Delivery Method Room Air 03/26/22 11:50 Oxygen Flow Rate 0 03/26/22 11:50 Pain Level 7 03/26/22 11:50
[2022-03-26 13:43] LABS: Bilirubin Negative (Negative); Blood Negative (Negative); Clarity Clear (Clear); Glucose Negative (Negative); Ketones Negative (Negative); Leukocyte Esterase Negative (Negative); Nitrite Negative (Negative); Specific Gravity >= 1.030 (1.005-1.025); Urobilinogen 0.2 EU/dL (Up TO 0.2)
--- NOTE | 2022-03-26 14:16 | NUR.NOTE ---
Nursing Note: Referral Faxed to [facility] Urlogy for Followup per Ismael KOROMA - for Urinary Retention and ED placed Butcher Cath
== END 2022-03-26 15:44 | disposition home or self-care (01) ==
PROVIDERS: Emergency Provider Physician Assistant; PCP Physician Assistant
DX: R33.9 Retention of urine, unspecified (principal)
CPT/HCPCS: 51702; 99283; 81003

== ENCOUNTER → 2022-03-28 12:31 | Outpatient (BNVA) | payer MEDICARE, MEDICAID, SELFPAY | PROVIDERS: PCP Physician Assistant; Referring Provider Physician Assistant; Visit Provider Nurse Practitioner Gerontology | DX: K59.00 Constipation, unspecified (principal); N40.1 Benign prostatic hyperplasia with lower urinary tract symptoms; R33.8 Other retention of urine | CPT/HCPCS: 99442 ==

== ENCOUNTER → 2022-04-10 15:08 | Outpatient (BNVA) | payer MEDICARE, MEDICAID, SELFPAY | PROVIDERS: PCP Physician Assistant; Referring Provider Physician Assistant; Visit Provider Nurse Practitioner Gerontology | DX: T83.021A Displacement of indwelling urethral catheter, initial encounter (principal); N40.1 Benign prostatic hyperplasia with lower urinary tract symptoms; K59.00 Constipation, unspecified; R33.8 Other retention of urine | CPT/HCPCS: 99213 ==

== ENCOUNTER → 2022-04-13 07:57 | Outpatient (BNVA) | payer MEDICARE, MEDICAID, SELFPAY | PROVIDERS: PCP Physician Assistant; Referring Provider Physician Assistant; Visit Provider Nurse Practitioner Gerontology | DX: N40.1 Benign prostatic hyperplasia with lower urinary tract symptoms (principal); Z96.0 Presence of urogenital implants; K59.00 Constipation, unspecified; R33.8 Other retention of urine | CPT/HCPCS: 51798; 81003; 99213 ==

== ENCOUNTER 2022-04-13 14:43 | Outpatient (REF) | payer MEDICARE, MEDICAID, SELFPAY | END 2022-04-13 14:44 | disposition home or self-care (01) | LOC: LBN 14:43 | PROVIDERS: PCP Physician Assistant; Visit Provider Nurse Practitioner Gerontology | DX: R31.9 Hematuria, unspecified (principal) | CPT/HCPCS: 87077; 87086; 87186 ==

== ENCOUNTER → 2022-05-29 10:17 | Outpatient (BNVA) | payer MEDICARE, MEDICAID, SELFPAY | PROVIDERS: PCP Physician Assistant; Referring Provider Physician Assistant; Visit Provider Nurse Practitioner Gerontology | DX: K59.00 Constipation, unspecified (principal); R33.8 Other retention of urine | CPT/HCPCS: 51798; 99213 ==

== ENCOUNTER 2022-09-05 02:08 | Outpatient (CLI) | payer MEDICARE, MEDICAID, SELFPAY ==
[2022-09-06 10:28] LABS: PSA, Diagnostic 6.1 ng/mL (<=3.5)
== END 2022-09-05 02:09 | disposition home or self-care (01) ==
LOC: LBO 02:08
PROVIDERS: PCP Physician Assistant; Visit Provider Urology
DX: R97.20 Elevated prostate specific antigen [PSA] (principal)
CPT/HCPCS: 36415; 84153

== ENCOUNTER → 2022-09-12 07:59 | Outpatient (BNVA) | payer MEDICARE, MEDICAID, SELFPAY | PROVIDERS: PCP Physician Assistant; Visit Provider Urology | DX: R97.20 Elevated prostate specific antigen [PSA] (principal) | CPT/HCPCS: 99213 ==

== ENCOUNTER 2022-11-29 17:56 | Outpatient (REF) | payer MEDICARE, MEDICAID, SELFPAY ==
[2022-11-29 16:11] LABS: Bilirubin Negative (Negative); Blood Negative (Negative); Clarity Clear (Clear); Glucose Negative (Negative); Ketones Negative (Negative); Leukocyte Esterase Negative (Negative); Nitrite Negative (Negative); Urobilinogen 0.2 mg/dL (Up to 0.2)
== END 2022-11-29 17:57 | disposition home or self-care (01) ==
LOC: LBN 17:56
PROVIDERS: PCP Physician Assistant; Visit Provider Nurse Practitioner Gerontology
DX: R31.9 Hematuria, unspecified (principal); R32 Unspecified urinary incontinence; R39.89 Other symptoms and signs involving the genitourinary system
CPT/HCPCS: 81003; 87086

== ENCOUNTER → 2022-12-12 15:18 | Outpatient (BNVA) | payer MEDICARE, MEDICAID, SELFPAY | PROVIDERS: PCP Physician Assistant; Referring Provider Physician Assistant; Visit Provider Urology | DX: R97.20 Elevated prostate specific antigen [PSA] (principal) | CPT/HCPCS: 51798; 81003; 99213 ==

== ENCOUNTER → 2023-01-30 12:12 | Outpatient (BNVA) | payer MEDICARE, MEDICAID, SELFPAY | PROVIDERS: PCP Physician Assistant; Referring Provider Physician Assistant; Visit Provider Urology | DX: R39.89 Other symptoms and signs involving the genitourinary system (principal) | CPT/HCPCS: 99442 ==

== ENCOUNTER 2023-03-13 01:30 | Outpatient (CLI) | payer MEDICARE, MEDICAID, SELFPAY ==
[2023-03-13 20:13] LABS: PSA, Diagnostic 7.1 ng/mL (<=3.5)
== END 2023-03-13 01:31 | disposition home or self-care (01) ==
LOC: LBO 01:30
PROVIDERS: PCP Physician Assistant; Visit Provider Urology
DX: R97.20 Elevated prostate specific antigen [PSA] (principal); R35.0 Frequency of micturition; F84.0 Autistic disorder
CPT/HCPCS: 36415; 99213; 84153

== ENCOUNTER 2023-08-08 08:50 | Outpatient (REF) | payer MEDICARE, MEDICAID, SELFPAY ==
[2023-08-08 16:18] LABS: HCT 39.1 % (40.0-50.0); HGB 12.6 g/dL (13.5-17.5); MCH 25.8 pg (27.0-33.0); MCHC 32.2 % (32.0-36.0); MCV 80 fL (80-95); MPV 9.5 fL (8.0-11.0); Platelet Count 226 10^3/uL (130-400); RBC 4.89 10^6/uL (4.36-5.78); RDW 13.9 % (11.8-14.1); RDW-SD 40.3 fL; WBC 5.52 10^3/uL (4.4-10.8)
[2023-08-08 16:36] LABS: ALT 37 U/L (16-63); AST 18 U/L (15-37); Albumin 3.7 g/dL (3.4-5.0); Alkaline Phosphatase 109 U/L (46-116); Anion Gap 12.4 mmol/L (3-11); BUN 20 mg/dL (7-18); Bilirubin, Total 0.7 mg/dL (0.2-1.0); CO2 24.6 mmol/L (21.0-32.0); CREATININE 0.9 mg/dL (0.70-1.30); Calcium 8.9 mg/dL (8.5-10.1); Calculated LDL 86 mg/dL (<100); Chloride 106 mmol/L (98-107); Cholesterol 164 mg/dL (<200); Estimated GFR 99.62 (mL/min/1.73m2); Glucose 91 mg/dL (74-106); HDL Cholesterol 38 mg/dL (40-60); Potassium 4.3 mmol/L (3.5-5.1); Sodium 143 mmol/L (136-145); Triglyceride 201 mg/dL (<150)
[2023-08-08 16:38] LABS: Hemoglobin A1C 6.2 % (<5.7)
[2023-08-10 19:58] LABS: Free PSA/PSA Ratio 0.16 ratio
== END 2023-08-08 08:51 | disposition home or self-care (01) ==
LOC: NCHCN 08:50
PROVIDERS: PCP Physician Assistant; Visit Provider Physician Assistant
DX: E11.9 Type 2 diabetes mellitus without complications (principal); R97.20 Elevated prostate specific antigen [PSA]
CPT/HCPCS: 80053; 80061; 85027; 83036; 84154

== ENCOUNTER 2023-11-16 07:23 | Day surgery (SDC) | payer MEDICARE, MEDICAID, SELFPAY ==
[2023-11-16] VITALS (24 sets, daily range): BP systolic 83–138; BP diastolic 50–84; PULSE 69–89; RESP 10–19; TEMP 36.2–36.7; O2SAT 92–96; BMI 27.6
--- NOTE | 2023-11-16 08:48 | W.ANESPRE ---
General Info Date of Service Date Performed: 11/16/23 Height: 5 ft 8 in Weight: 82.4 kg Body Mass Index (BMI): 27.6 Surgical Procedure: Operation Date: 11/16/23 09:55 Proposed Procedure Side Surgeon p Cataract Extraction with IOL Implant Right Michael Viveros MD Meds Allergies and Home Medications Allergies Allergy/AdvReac Type Severity Reaction Status Date / Time Penicillins Allergy Unknown Verified 11/16/23 08:35 Home Medication ?Medication ?Instructions ?Recorded atorvastatin 20 mg tablet 20 mg PO DAILY 09/02/21 calcium carb-vit D3-minerals 600 2 tab PO DAILY 09/02/21 mg calcium-400 unit tablet cetirizine 10 mg capsule (All Day 10 mg PO DAILY PRN 09/02/21 Allergy (cetirizine)) sertraline 25 mg tablet 25 mg PO DAILY 09/12/22 metformin 500 mg tablet 500 mg PO DAILY 12/12/22 diaper,brief,adult,disposable #60 ea 01/09/23 tamsulosin 0.4 mg capsule (Flomax) 0.4 mg PO DAILY #180 caps 01/30/23 fluoxetine 20 mg capsule 40 mg PO DAILY 03/13/23 melatonin 3 mg capsule 3 mg PO HS PRN 11/15/23 omega 0-dvf-kau-fish oil 1,000 mg 2 cap PO DAILY 11/15/23 (120 mg-180 mg) capsule (Fish Oil) omeprazole 20 mg capsule,delayed 20 mg PO DAILY 11/15/23 release Current Visit Medications: Current Medications Generic Name Dose Route Start Last Admin Trade Name Freq PRN Reason Stop Dose Admin Acetaminophen 1,000 mg 11/16/23 06:00 Acetaminophen 500 Mg Tab PO 12/16/23 05:59 Q4H PRN PRN Balanced Salt Solution 500 ml 11/16/23 06:00 Balanced Salt Soln.-Plus 500 Ml Bag OP 12/16/23 05:59 DIRECTED HANNA Ringer's Solution 1,000 mls @ 30 mls/hr 11/16/23 06:00 IV 11/16/23 23:59 INFUSION HANNA IV Miscellaneous Supplies 1 each 11/16/23 06:00 Iv Access IV 11/16/23 23:59 [facility] Miscellaneous Medication 0 ml 11/16/23 06:00 Prednisolone 1%, Moxifloxacin 0.5%, Bromfenac 0.09% 5ml Btl OD 12/16/23 05:59 [facility] Miscellaneous Medication 0 ml 11/16/23 06:00 Tropicam./Phenyleph. (1/2.5%) 10 Ml Btl OD 12/16/23 05:59 [facility] Sodium Chloride 0 ml 11/16/23 06:00 Normal Saline Flush 10 Ml Syr IV 11/16/23 23:59 PRN PRN Sodium Chloride 0 ml 11/16/23 06:00 Normal Saline 10 Ml Vial IJ 11/16/23 23:59 DIRECTED PRN Sterile Water 0 ml 11/16/23 06:00 Water,Injection,Sterile 10 Ml Vial IJ 11/16/23 23:59 DIRECTED PRN Tetracaine HCl 0 ml 11/16/23 06:00 Tetracaine 0.5% 4 Ml Btl OD 12/16/23 05:59 [facility] PFSH Active Problems Active Problems: Problem Status Onset Code Posterior subcapsular age-related cataract, right eye Acute H25.041 Nuclear age-related cataract, right eye Acute H25.11 Incontinence of urine Acute R32 Lower urinary tract symptoms (LUTS) Acute R39.9 Serrated adenoma of colon Acute D12.6 Tubular adenoma of colon Acute D12.6 Hyperplastic colon polyp Acute K63.5 Encounter for colorectal cancer screening Acute Z12.11, Z12.12 Positive colorectal cancer screening using Cologuard test Acute R19.5 Medical History Medical History Diabetes HLD (hyperlipidemia) Autistic disorder Low verbal 2-3 word sentences. Per caregiver he understands concepts well, he is very very smart, just he is not able to communicate his wants and needs AWA (generalized anxiety disorder) GERD (gastroesophageal reflux disease) Sleep apnea Elevated PSA Onychomycosis Surgical History Surgical History History of colonoscopy (~11/2021) History of appendectomy Tobacco Smoking/Tobacco Use Status: Never Alcohol Alcohol Intake: never Substance Use Substance use: Never Substance use type: does not use Vital Signs and Lab Results Vital Signs Most Recent Vital Signs in EMR: Most Recent Vital Signs Temp Pulse Resp BP Pulse Ox 36.6 C 76 18 130/84 95 11/16/23 08:18 11/16/23 08:18 11/16/23 08:18 11/16/23 08:18 11/16/23 08:18 Lab Results Blood Type / Crossmatch: No Data to Display Complete Blood Count: No Data to Display Complete Metabolic Panel: No Data to Display Liver Function Panel: No Data to Display Coagulation Panel: No Data to Display Cardiac Panel: No Data to Display Arterial Blood Gas: No Data to Display Venous Blood Gas: No Data to Display Pancreas Panel: No Data to Display Thyroid Panel: No Data to Display Infectious Disease: No Data to Display Blood Cultures: No Data to Display Toxicology Panel: No Data to Display Anesthesia Assessment and Plan Anesthesia History Personal History: Unknown Anesthesia History Family History: Family History Unknown Exercise Tolerance Exercise Tolerance: Metabolic Equivalents>4 Pertinent Negatives Pertinent Negatives: No Symptoms of GERD Cardiac & Pulmonary Exam Cardiac Exam: Normal S1/S2 Heart Sounds Pulmonary Exam: Clear Bilateral Breath Sounds Implantable Cardiac Device Does patient have a Pacemaker or an ICD?: No Airway Exam Known Difficult Airway: No Mallampati Class: 2 Mouth Opening: Narrow (< 3cm) Thyromental Distance: Greater than 3 cm Neck Range of Motion: Full ROM Neck Circumference: Normal Teeth Condition: Normal Dentition ASA Classification ASA Score: ASA 3 Emergency Case?: No NPO Status NPO Status: NPO Clears >2 hours, Solids >8 hours Anesthesia Plan Resuscitation Status: Full Code Anesthesia Technique: General Anesthesia Airway Planned: LMA Monitors Used: Standard Monitors
[2023-11-16] MEDS: Lactated Ringers 1,000 ML 30 ML IV (09:09)
[2023-11-16] MEDS: Povidone-Iodine Ophth 30 ML BTL (11:30)
[2023-11-16] MEDS: Tetracaine 0.5% 4 ML BTL OD (11:31)
[2023-11-16] MEDS: Balanced Salt Soln.-PLUS 500 ML BAG OP (11:49)
[2023-11-16] MEDS: Lidocaine 1% Pres-Free 5 ML VIAL (11:50)
[2023-11-16] MEDS: Duovisc Viscoelastic System EACH 1 EACH (11:50)
--- NOTE | 2023-11-16 12:10 | W.PM.DSUDISC ---
Date of service: 11/16/23 Time of Service: 12:10 Discharge Plan Disposition Patient Disposition: Home Discharge Details Attending Provider: Michael Viveros Primary Care Provider: Alexi Briceno Home Meds and New Rx's Prescriptions: No Action sertraline 25 mg tablet 25 mg PO DAILY Patient Comments: 11/16/23 Carer reports pt does not take this. FS RN fluoxetine 20 mg capsule 40 mg PO DAILY tamsulosin [Flomax] 0.4 mg capsule 0.4 mg PO DAILY Qty: 180 1RF Rx Instructions: give both pills @ 1 hour after supper calcium carbonate-vit D3-min 600 mg calcium- 400 unit tablet 2 tab PO DAILY atorvastatin 20 mg tablet 20 mg PO DAILY All Day Allergy (cetirizine) 10 mg capsule 10 mg PO DAILY PRN metformin 500 mg tablet 500 mg PO DAILY (DME) diaper,brief,adult,disposable Misc See Rx Instructions .ROUTE .MEDSUPPLY Qty: 60 11RF Rx Instructions: active style size large 2 briefs/day omega 9-uxe-tdb-fish oil [Fish Oil] 1,000 mg (120 mg-180 mg) capsule 2 cap PO DAILY omeprazole 20 mg capsule,delayed release(DR/EC) 20 mg PO DAILY melatonin 3 mg capsule 3 mg PO HS PRN Discharge Instructions Stand Alone Forms: [facility] Post-Op [facility] (DSU) Discharge Orders Discharge Orders: Discharge Order (Routine); Ordered 11/16/23 Ordered By: Michael Viveros DS: Diagnosis Discharge Diagnosis (1) Posterior subcapsular age-related cataract, right eye: Status: Resolved (2) Nuclear age-related cataract, right eye: Status: Resolved
--- NOTE | 2023-11-16 12:11 | ROE_ITS ---
Date of service: 11/16/23 Time of Service: 12:11 Operative Note Operative Note DATE OF PROCEDURE: 11/16/23 PRE-OP DIAGNOSIS: Nuclear/posterior subcapsular cataract, right eye POST-OP DIAGNOSIS: same PROCEDURE: Cataract extraction using phacoemulsification with intraocular lens implant, right eye SURGEON: Michael Viveros ANESTHESIA TYPE: Local By Surgeon and General LMA/ETT Refer to Anesthesia Record ESTIMATED BLOOD LOSS: 0 PATHOLOGY: none sent COMPLICATIONS: None Patient was transported to: same day Patient's condition: stable Implants: Yasmani & Yasmani Tecnis Eyhance [id number] Indications: Progressive visual loss due to cataract, right eye Procedure Description: CATARACT SURGERY OPERATIVE REPORT PREOPERATIVE DIAGNOSIS: 1. Nuclear/posterior subcapsular cataract, right eye POSTOPERATIVE DIAGNOSIS: Same OPERATION: 1. Cataract extraction using phacoemulsification with posterior chamber intraocular lens implant, right eye. IOL: IOL Repairer Engine Production/Model: Yasmani & Yasmani Tecnis Eyhance DIB00 IOL Power: + 14.0 diopters IOL Serial Number: [id number] Optic Diameter: 6.0mm Haptic/Overall Diameter: 13.0mm PHACO INFO: Alexander NeuMoDx Molecularurion Vision System with OZil and Active Fluidics Cumulative Dispersed Energy (CDE): 4.65 seconds SURGEON: Michael Viveros MD, RENA ANESTHESIA: General/LMA, with local sub-tenon's anesthetic infiltration COMPLICATIONS: None SPECIMENS: None INDICATIONS FOR PROCEDURE: The patient is a 58-year-old male with history of diminished visual acuity and his right eye secondary to the development of nuclear/posterior subcapsular cataract. 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 He desires cataract surgery in his right eye and attempt to improve and maximize his vision. See office notes for detailed information. PROCEDURE: The correct surgical eye was identified and marked as the right eye and the pupil was dilated in the preoperative area using mydriatics and cycloplegics. The dilated pupil size was 6.0 mm. The patient was brought to the operating room where cardiopulmonary monitoring was instituted and surgical time-out was performed, confirming the correct operative eye and IOL power. General/LMA anesthesia was instituted. Topical anesthesia was administered and ophthalmic povidone-iodine 5% was instilled into the conjunctival fornices. The pedrito-ocular area was prepped with Betadine 10% solution and draped in the usual sterile fashion for intraocular surgery, including an aperture drape. A Tegaderm transparent film dressing was cut in half and used to cover the lashes and lid margins. Care was taken to sequester the lashes and lid margins under the Tegaderm dressing. A lid speculum was placed between the lids of the operative eye and the Alexander LuxOR Revalia operating microscope was maneuvered into position. Jarvis scissors were then used to make a conjunctival buttonhole approximately 6mm posterior to the limbus in the inferonasal quadrant. Blunt dissection was carried out to expose bare sclera, and a blunt-tipped sub-tenon?s anesthesia cannula was introduced and passed posteriorly along the globe where non- preserved plain lidocaine was injected into posterior sub-Tenon?s space. A si deport knife was used to make a paracentesis port. Intraocular phenylephrine/lidocaine was injected into the anterior chamber. The anterior chamber was filled with viscoelastic. A keratome knife was used to construct a 2-plane clear corneal tunnel extending 2.0mm into clear cornea. A flap was raised on the anterior capsule and capsulorhexis forceps were used to complete a continuous curvilinear capsulorhexis of 5.0 mm. Balanced salt solution was then used to perform cortical cleaving hydrodissection and nuclear hydrodelineation until the lens could be freely rotated within the capsular bag. The lens nucleus was then disassembled and removed within the capsular bag and iris plane using phacoemulsification. Residual cortical material was removed using the I/A handpiece. The posterior capsule was carefully polished to remove as much residual lens epithelial cells as safely possible. The capsular bag was then inflated and the anterior chamber deepened with cohesive viscoelastic. The lens implant described above was inserted into the capsular bag using the Yasmani and Juan Simplicity pre- loaded injector. A Kuglen hook was used to dial the IOL into position. Residual viscoelastic was then removed first from posterior to the IOL, then from the anterior chamber using the I/A handpiece. The lens implant was noted to center nicely within the capsular bag. The incisions were stromally hydrated, and the anterior chamber was reformed using BSS. Then 0.5cc of moxifloxacin 1.0mg/ml were injected into the capsular bag and anterior chamber. The incisions were checked with a Weck spear and found to be secure. Several drops of ophthalmic povidone-iodine 5% were then applied to the eye followed by two drops ocombination steroid/NSAID/antibiotic solution. The drapes were removed and a clear plastic protective eye shield was placed over the eye. The patient was then returned to Same Day Surgery in stable condition.
[2023-11-16] MEDS: ePHEDrine 25 MG/5 ML Syringe IVP ×2 (12:15→12:29)
--- NOTE | 2023-11-16 12:52 | W.ANESPOSTOP ---
Postoperative Evaluation Date, Time and Location Date Performed: 11/16/23 Time Performed: 12:52 Patient Location: PACU Vital Signs Most Recent Imported Vital Signs: Most Recent Vital Signs Temp Pulse Resp BP Pulse Ox 36.7 C 70 17 103/58 L 96 11/16/23 12:45 11/16/23 12:45 11/16/23 12:46 11/16/23 12:45 11/16/23 12:46 Pain Score Most Recent Pain Score: Most Recent Pain Score Pain Level 0 11/16/23 08:18 Assessment Mental Status: Awake (Alert & Oriented to Patient Baseline) Airway and Respiratory Function: Patent airway with normal (patient baseline) respiratory exam Cardiovascular Function: Hemodynamically Stable Hydration Status: Adequately Hydrated Nausea & Vomiting: No Nausea or Vomiting Pain: Pt. Denies Any Pain Peripheral Nerve Block: Patient did not receive a nerve block
== END 2023-11-16 13:40 | disposition home or self-care (01) ==
PROVIDERS: PCP Physician Assistant; Visit Provider Ophthalmology
PROC: (CPT 66984; principal; 2023-11-16 09:45)
DX: H25.041 Posterior subcapsular polar age-related cataract, right eye (principal); H25.11 Age-related nuclear cataract, right eye
CPT/HCPCS: 66984; 00123; J1100; J2001; J2003; J2250; J2405; J2704

== ENCOUNTER 2024-02-01 13:19 | Outpatient (CLI) | payer MEDICARE, MEDICAID, SELFPAY ==
[2024-02-04 09:56] LABS: PSA, Diagnostic 6.9 ng/mL (<=3.5)
== END 2024-02-01 13:20 | disposition home or self-care (01) ==
LOC: LBO 13:20
PROVIDERS: PCP Physician Assistant; Visit Provider Urology
DX: R97.20 Elevated prostate specific antigen [PSA] (principal)
CPT/HCPCS: 36415; 84153

== ENCOUNTER → 2024-02-06 15:24 | Outpatient (BNVA) | payer MEDICARE, MEDICAID, SELFPAY | PROVIDERS: PCP Physician Assistant; Referring Provider Physician Assistant; Visit Provider Nurse Practitioner Gerontology | DX: R32 Unspecified urinary incontinence (principal); R97.20 Elevated prostate specific antigen [PSA] | CPT/HCPCS: 51798; 99213 ==

== ENCOUNTER 2024-05-26 12:40 | Emergency (ER) | payer MEDICARE, MEDICAID, SELFPAY ==
[2024-05-26 12:46] VITALS: BP 166/95; PULSE 102; RESP 16; TEMP 36.9; O2SAT 98
--- NOTE | 2024-05-26 13:04 | ED.GENADUL_ITS ---
Discharge Plan Discharge Details Chief Complaint: Abd Prob Primary Care Provider: Alexi Briceno ED Provider: Mary Phelan Home Meds and New Rx's Prescriptions: No Action sertraline 25 mg tablet 25 mg PO DAILY Patient Comments: 11/16/23 Carer reports pt does not take this. FS RN tamsulosin [Flomax] 0.4 mg capsule 0.4 mg PO DAILY fluoxetine 20 mg capsule 40 mg PO DAILY calcium carbonate-vit D3-min 600 mg calcium- 400 unit tablet 2 tab PO DAILY atorvastatin 20 mg tablet 20 mg PO DAILY All Day Allergy (cetirizine) 10 mg capsule 10 mg PO DAILY PRN (DME) diaper,brief,adult,disposable Misc See Rx Instructions .ROUTE .MEDSUPPLY Qty: 60 11RF Rx Instructions: active style size large 2 briefs/day metformin 500 mg tablet 500 mg PO BID risperidone 1 mg tablet 1 mg PO DAILY omega 5-npt-lrc-fish oil [Fish Oil] 1,000 mg (120 mg-180 mg) capsule 2 cap PO DAILY melatonin 3 mg capsule 3 mg PO HS PRN omeprazole 20 mg capsule,delayed release(DR/EC) 20 mg PO DAILY PRN HPI General Date/Time Provider Initiated Documentation: 05/26/24 12:54 . Limitations to Documentation: physical limitation (non-verbal, uses some hand gestures, minimal speaking) . Information obtained by: patient, family (animal care assistant) and RN notes reviewed . History of Present Illness 58 year old M presents to the emergency department with the chief complaint of abdominal discomfort, mucus and blood in stool today, and is localized to the abdomen. Patient reports no radiation. Patient started experiencing this day(s) and it has been constant. No relieving factors improve symptom(s), No exacerbating factors reported . Patient notes denies chest pain, cough, fever/chills, loss of appetite, malaise, nausea/vomiting, rash and shortness of breath. Patient did receive the following treatments prior to arrival, none Related Data Home Medications ?Medication ?Instructions ?Recorded ?Confirmed atorvastatin 20 mg tablet 20 mg PO DAILY 09/02/21 05/26/24 calcium 600 mg (as carbonate)-vit 2 tab PO DAILY 09/02/21 05/26/24 D3 10 mcg (400 unit)-minerals tablet cetirizine 10 mg capsule (All Day 10 mg PO DAILY PRN 09/02/21 05/26/24 Allergy (cetirizine)) sertraline 25 mg tablet 25 mg PO DAILY 09/12/22 05/26/24 diaper,brief,adult,disposable #60 ea 01/09/23 05/26/24 fluoxetine 20 mg capsule 40 mg PO DAILY 03/13/23 05/26/24 melatonin 3 mg capsule 3 mg PO HS PRN 11/15/23 05/26/24 omega 1-nwr-cde-fish oil 1,000 mg 2 cap PO DAILY 11/15/23 05/26/24 (120 mg-180 mg) capsule (Fish Oil) metformin 500 mg tablet 500 mg PO BID 02/06/24 05/26/24 omeprazole 20 mg capsule,delayed 20 mg PO DAILY PRN 02/06/24 05/26/24 release tamsulosin 0.4 mg capsule (Flomax) 0.4 mg PO DAILY 02/06/24 05/26/24 risperidone 1 mg tablet 1 mg PO DAILY 05/26/24 05/26/24 Previous Rx's ?Medication ?Instructions ?Recorded diaper,brief,adult,disposable #60 ea 01/09/23 Allergies Allergy/AdvReac Type Severity Reaction Status Date / Time Penicillins Allergy Unknown Verified 05/26/24 12:50 General Stated Complaint: Abd Prob RHYS: 3 Review of Systems Constitutional Constitutional: Reports as per HPI and Denies fever(s) Cardiovascular Cardiovascular: Reports as per HPI, Denies chest pain and Denies dyspnea Respiratory Respiratory: Reports as per HPI, Denies cough and Denies dyspnea Gastrointestinal Gastrointestinal: Reports as per HPI Genitourinary Genitourinary: Denies system reviewed and no additional complaints, except as documented (patient denies any change in urinary habits) Musculoskeletal Musculoskeletal: Reports as per HPI and Denies back pain Integumentary/Breasts Skin/Breast: Reports as per HPI and Denies rash Neurologic Neurologic: Reports as per HPI Exam Const General: cooperative, healthy appearing, comfortable, no acute distress and well developed Nutritional Appearance: well nourished and overweight Orientation: alert and awake [facility] Head: normal to inspection Mouth: moist mucous membranes Resp Effort & Inspection: normal respiratory effort and no respiratory distress Auscultation: clear to auscultation bilaterally, no rales, no rhonchi and no wheezes Cardio Rate: regular rate Rhythm: regular rhythm Heart Sounds: S1 normal and S2 normal GI Inspection: normal to inspection Palpation: soft, not firm, no guarding, no masses, not rigid, tender (reports some diffuse discomfort but no sigficant pain with palpation) and No ascites Percussion: normal to percussion Auscultation: normal bowel sounds Rectal Exam: visual inspection normal, normal sphincter tone, abnormal stool blood-tinged and mucoid, fecal impaction and heme positive stool Back/Spine/Pelvis Back: no CVA tenderness Skin General skin exam: no rashes or lesions noted Trauma: no lacerations or abrasions Course Vital Signs Vital signs: Vital Signs Temperature 36.9 C 05/26/24 12:46 Pulse 102 H 05/26/24 12:46 Respiratory Rate 16 05/26/24 12:46 Blood Pressure 166/95 H 05/26/24 12:46 Pulse Oximetry 98 05/26/24 12:46 Temperature 36.9 C 05/26/24 12:46 Pulse 102 H 05/26/24 12:46 Respiratory Rate 16 05/26/24 12:46 Blood Pressure 166/95 H 05/26/24 12:46 Pulse Oximetry 98 05/26/24 12:46 Medical Decision Making Patient is a pleasant, largely non-verbal, 58 year old male with PMH sigfnicant for DM, HLD, autism, GERD, AWA, sleep apnea, brought in by animal care assistant, with c/c of BRBPR. Started passing just mucus and blood this AM, has had 2 episodes. Patient reports he noted some blood yesterday but did not report to his animal care assistant. Had a colonoscopy in 2021 which was normal, aside from some polyps, after similar episode. He had fecal impaction prior to the procedure as well as BPRPR. On exam, patient appears nontoxic. He is resting comfortably no acute distress. Only started getting discussion around rectal exam, patient does express some anxiety. He is able to communicate with hand gestures. 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 Continue to his request some concerns. Normal pulmonary and cardiac exam. No CVA tenderness. Abdomen is largely benign although the patient does report some diffuse discomfort there is no focal area of discomfort to suggest surgical abdomen. No guarding, rigidity. No pulsatile mass. Rectal exam concerning for fecal impaction. It was heme positive. Patient's discomfort as well as difficulty stooling is likely associated with the fecal impaction. This has been an issue for the patient historically. We discussed were/benefits as well as expected procedural steps associated with disimpaction. As the patient's had significant discomfort and anxiety around th is historically, will give one of his as needed anxiety lytics, 1 mg of Ativan, as well as some Tylenol and ibuprofen for discomfort prior to attempting. Also discussed with pharmacy the potential for topical option to help with discomfort. Topical viscous lidocaine can be given rectally per pharmacy. They recommend 2%. Max of 60 mL. After appropriate comfort was reached, digital disimpaction was attempted by myself. While the patient did have good relief with the viscous lidocaine administered rectally, I was not able to extract a large amount of stool, stool it is there is quite soft and difficult to mobilize. Will move to Fleet enema. Discussed this plan with the patient and his caregiver. At the end of my shift, care transitioned to oncoming clinician. Receiving enema. Quality:SDOH Health Related Social Needs: No Data to Display PFSH All Active Problems Incontinence of urine (Acute) Lower urinary tract symptoms (LUTS) (Acute) Serrated adenoma of colon (Acute) Tubular adenoma of colon (Acute) Hyperplastic colon polyp (Acute) Encounter for colorectal cancer screening (Acute) Positive colorectal cancer screening using Cologuard test (Acute) Medical History Diabetes HLD (hyperlipidemia) Autistic disorder Low verbal 2-3 word sentences. Per caregiver he understands concepts well, he is very very smart, just he is not able to communicate his wants and needs AWA (generalized anxiety disorder) GERD (gastroesophageal reflux disease) Sleep apnea Elevated PSA Onychomycosis Surgical History (Updated 11/16/23 @ 12:10 by Michael Viveros MD) History of colonoscopy (~11/2021) History of appendectomy Social History Smoking/Tobacco Use Status: Never Smoking risk assessment performed?: Yes Alcohol Intake: never Drug use: Never Substance use type: does not use Housing: house Additional Social history: unable to assess [facility]
[2024-05-26] MEDS: LORazepam 1 MG TAB PO (13:32)
[2024-05-26] MEDS: Acetaminophen 500 MG TAB 1000 MG PO (13:32)
[2024-05-26] MEDS: Ibuprofen 600 MG TAB PO (13:32)
[2024-05-26 18:32] LABS: Abs Immature Grans 0.04 10^3/uL (0.0-0.06); Absolute Basophil Count 0.01 10^3/uL (0.0-0.2); Absolute Eosinophil Count 0.04 10^3/uL (0.0-0.7); Absolute Lymphocyte Count 0.93 10^3/uL (1.2-3.4); Absolute Monocyte Count 0.42 10^3/uL (0.1-0.8); Absolute Neutrophil Count 7.11 10^3/uL (1.2-6.7); Basophils % 0.1 %; Eosinophils % 0.5 %; HCT 33.2 % (40.0-50.0); HGB 10.5 g/dL (13.5-17.5); Immature Grans % 0.5 %; Lymphocytes % 10.9 %; MCH 23.4 pg (27.0-33.0); MCHC 31.6 % (32.0-36.0); MCV 74 fL (80-95); MPV 8.7 fL (8.0-11.0); Monocytes % 4.9 %; Neutrophils % 83.1 %; Platelet Count 219 10^3/uL (130-400); RBC 4.49 10^6/uL (4.36-5.78); RDW 14.4 % (11.8-14.1); RDW-SD 38.3 fL; WBC 8.55 10^3/uL (4.4-10.8)
[2024-05-26 18:43] LABS: Microcytosis 1+
[2024-05-26] MEDS: LORazepam 2 MG/ML VIAL 1 MG IVP ×2 (18:47→21:12)
[2024-05-26 18:59] LABS: ALT 28 U/L (16-63); AST 17 U/L (15-37); Albumin 3.8 g/dL (3.4-5.0); Alkaline Phosphatase 107 U/L (46-116); Anion Gap 12.1 mmol/L (3-11); BUN 12 mg/dL (7-18); Bilirubin, Total 0.84 mg/dL (0.2-1.0); CO2 25.9 mmol/L (21.0-32.0); Calcium 9.9 mg/dL (8.5-10.1); Chloride 101 mmol/L (98-107); Estimated GFR 87.24 (mL/min/1.73m2); Glucose 113 mg/dL (74-106); Sodium 139 mmol/L (136-145); Total Protein 7.1 g/dL (6.4-8.2)
[2024-05-26] MEDS: Normal Saline - Diluent 50 ML VIAL IJ (19:10)
[2024-05-26] MEDS: Omnipaque 350 MG/ML 100 ML BTL 75 ML IJ (19:14)
--- NOTE | 2024-05-26 19:27 | DI.CT_ITS ---
Exam(s) CT ABDOMEN PELVIS W EXAM: CT ABDOMEN PELVIS W CLINICAL HISTORY: abdominal pain, no bm, blood in stool TECHNIQUE: Imaging Protocol: Axial computed tomography images with coronal and sagittal reformatted images were created and reviewed. CONTRAST MATERIAL: Intravenous: Omnipaque 350 Contrast volume:75 mL Oral: No COMPARISON: CT CT ABDOMEN PELVIS W from 03/23/2022 FINDINGS: ABDOMEN: Lung Bases: There is again seen a large hiatal hernia. Coronary artery calcifications are present. Liver: Normal density. No measurable mass. Portal, Superior Mesenteric, and Splenic Veins: Unremarkable. Gallbladder and Biliary Tract: No radiodense calculus or dilation. Pancreas: Normal density, no abnormal calcifications or inflammatory process. Spleen: Normal. Adrenals: No masses seen. Kidneys: Normal size, contour and axis. No radiodense stones or obstructive uropathy. There is a simp le cyst in the superior pole of the right kidney which is stable. No follow-up is recommended. Ther e are few tiny hypodensities in each kidney which are too small for further characterization but like ly reflect small cysts. No follow-up is recommended. Abdominal Aorta: Abdominal portion non-dilated. Atherosclerotic calcification is present. Bowel: There is stool throughout the colon with a large amount of stool seen in the rectum. There is very mild thickening of the wall of the rectum and mild infiltrative findings in the surrounding sof t tissues. Stercoral colitis should be considered. There is no evidence of bowel obstruction. The remainder of the bowel appears grossly unremarkable. There is no evidence of appendicitis. The stom ach is incompletely distended limiting evaluation. Peritoneal Cavity: No ascites, collection or mesenteric inflammatory response. No free air. Lymph Nodes: Within normal limits. Bones: Within normal limits for the patient's age. Soft Tissues: There is a fat containing umbilical hernia. PELVIS: Bladder: Symmetric distention, no gross wall thickening. The urinary bladder is distended. No bladde r wall thickening is seen. Reproductive Organs: Unremarkable as visualized. Lymph Nodes: Within normal limits. Bones: Within normal limits for the patient's age. IMPRESSION: There is a large amount of stool throughout the colon suggesting constipation. There is a large amou nt of stool seen in the rectal vault with mild thickening of the wall of the rectum and mild infiltra tive changes. The findings are most suggestive of stercoral colitis. RADIATION DOSE DELIVERED: 1,198.91mGy.cm Total DLP DATA REPOSITORY: All CT scans at this facility are submitted to the National Radiology Data Registry (NRDR) Dose Index Registry (DIR) with the [employer] (ACR). RADIATION OPTIMIZATION: All CT scans at this facility use at least one of these dose optimization te chniques: automated exposure control; mA and/or kV adjustment per patient size (includes targeted exa ms where dose is matched to clinical indication); or iterative reconstruction.
[2024-05-26 19:51] LABS: Lipase 40 U/L (<78)
--- NOTE | 2024-05-26 20:38 | DI.VRAD_ITS ---
PROCEDURE INFORMATION: Exam: CT Abdomen And Pelvis With Contrast Exam date and time: 05/26/2024 7:11 PM Age: 58 years old Clinical indication: Abdominal pain; Generalized; Patient HX: Pain/blood in stool TECHNIQUE: Imaging protocol: Computed tomography of the abdomen and pelvis with contrast. Radiation optimization: All CT scans at this facility use at least one of these dose optimization techniques: automated exposure control; mA and/or kV adjustment per patient size (includes targeted exams where dose is matched to clinical indication); or iterative reconstruction. Contrast material: OMNI 350; Contrast volume: 75 ml; Contrast route: INTRAVENOUS (IV); COMPARISON: CT ABDOMEN PELVIS W 03/23/2022 10:38 AM FINDINGS: Diaphragm: Stable appearing moderate-sized hiatal hernia. Liver: Normal. No mass. Gallbladder and biliary ducts: Normal. No calcified stones. No ductal dilation. Pancreas: Normal. No ductal dilation. Spleen: Normal. No splenomegaly. Adrenal glands: Normal. No mass. Kidneys and ureters: Stable simple 4.7 cm right renal cortical cyst. Left kidney appears normal. No hydronephrosis. Stomach and bowel: Large volume of stool producing distension of the rectum suggesting fecal impaction. Wall thickening of the rectum with surrounding fatty stranding suggesting stercoral colitis. Moderate fecal retention throughout the remainder of the colon. Small bowel-gas pattern appears normal. Appendix: No evidence of appendicitis. Intraperitoneal space: Unremarkable. No free air. No significant fluid collection. Vasculature: Unremarkable. No abdominal aortic aneurysm. Lymph nodes: Unremarkable. No enlarged lymph nodes. Urinary bladder: Unremarkable as visualized. Reproductive: Unremarkable as visualized. Bones/joints: Mild degenerative changes throughout the lower spine. No vertebral body compression. No acute fracture. Soft tissues: Unremarkable. IMPRESSION: Findings suggesting rectal fecal impaction and stercoral colitis involving the rectum. Associated colonic constipation Dictated and Authenticated by: Damián Potter MD. Orderin Todd Mcdowell MD
[2024-05-26] MEDS: Lidocaine 2% Viscous 15 ML CUP PO (21:12)
[2024-05-26] MEDS: Lidocaine 2% Jelly 11 ML SYR UR (21:26)
[2024-05-26] MEDS: Normal Saline 1,000 ML 1000 ML IV (21:51)
[2024-05-26] MEDS: Magnesium Citrate 300 ML BTL PO (22:49)
[2024-05-26] MEDS: Docusate Sodium 100 MG CAP PO (22:49)
--- NOTE | 2024-05-26 22:49 | ED.PROG_ITS ---
Medical Decision Making Quality:SDOH Health Related Social Needs: No Data to Display Discharge Plan Disposition Patient Disposition: Home Condition: Stable Discharge Details Clinical Impression: Fecal impaction, Acute urinary retention Primary Care Provider: Alexi Briceno ED Provider: July Brooks Home Meds and New Rx's Prescriptions: New docusate sodium [Colace] 100 mg capsule 100 mg PO DAILY Qty: 30 0RF Continued sertraline 25 mg tablet 25 mg PO DAILY Patient Comments: 11/16/23 Carer reports pt does not take this. FS RN tamsulosin [Flomax] 0.4 mg capsule 0.4 mg PO DAILY fluoxetine 20 mg capsule 40 mg PO DAILY calcium carbonate-vit D3-min 600 mg calcium- 400 unit tablet 2 tab PO DAILY atorvastatin 20 mg tablet 20 mg PO DAILY All Day Allergy (cetirizine) 10 mg capsule 10 mg PO DAILY PRN (DME) diaper,brief,adult,disposable Misc See Rx Instructions .ROUTE .MEDSUPPLY Qty: 60 11RF Rx Instructions: active style size large 2 briefs/day metformin 500 mg tablet 500 mg PO BID risperidone 1 mg tablet 1 mg PO DAILY omega 5-ief-fpj-fish oil [Fish Oil] 1,000 mg (120 mg-180 mg) capsule 2 cap PO DAILY melatonin 3 mg capsule 3 mg PO HS PRN omeprazole 20 mg capsule,delayed release(DR/EC) 20 mg PO DAILY PRN Discharge Instructions Instructions: Fecal Impaction (DC), Urinary Retention (DC) Additional Instructions: take the magnesium citrate tomorrow if you don't have a bowel movement take colace daily 100 mg follow up with Dr Vance in one week for gomez reassessment increase fluids metameucil daily continue on the flomax daily colonoscopy with persistent symptoms please return with fever, chills, or should you have new or worsening complaints Referrals: Alexi Briceno [Primary Care Provider] - 1 day Sacha Vance MD [ [facility] STAFF PHYSICIAN] - 1 week
[2024-05-26 23:27] VITALS: BP 132/67; PULSE 67; RESP 16; TEMP 36.4; O2SAT 97
== END 2024-05-26 23:27 | disposition home or self-care (01) ==
PROVIDERS: Emergency Provider Physician Assistant; PCP Physician Assistant
DX: R33.8 Other retention of urine (principal); K56.41 Fecal impaction
CPT/HCPCS: 36415; 51702; 80053; 83690; 86850; 86900; 86901; 96361; 96374; 96376; 99285; 74177; 85025; 99284; J2060; J3490

== ENCOUNTER → 2024-06-02 07:51 | Outpatient (BNVA) | payer MEDICARE, MEDICAID, SELFPAY | PROVIDERS: PCP Physician Assistant; Referring Provider Physician Assistant; Visit Provider Nurse Practitioner Gerontology | DX: R33.8 Other retention of urine (principal); K59.00 Constipation, unspecified | CPT/HCPCS: 51798; 81003; 99214 ==

== ENCOUNTER 2024-06-02 17:53 | Outpatient (REF) | payer MEDICARE, MEDICAID, SELFPAY | END 2024-06-02 17:54 | disposition home or self-care (01) | LOC: LBN 17:53 | PROVIDERS: PCP Physician Assistant; Visit Provider Nurse Practitioner Gerontology | DX: R31.9 Hematuria, unspecified (principal) | CPT/HCPCS: 87077; 87086; 87186 ==

== ENCOUNTER → 2024-06-09 08:23 | Outpatient (BNVA) | payer MEDICARE, MEDICAID, SELFPAY | PROVIDERS: PCP Physician Assistant; Referring Provider Physician Assistant; Visit Provider Nurse Practitioner Gerontology | DX: R33.8 Other retention of urine (principal); K59.00 Constipation, unspecified | CPT/HCPCS: 51798; 81003; 99213 ==

== ENCOUNTER → 2024-06-30 15:17 | Outpatient (BNVA) | payer MEDICARE, MEDICAID, SELFPAY | PROVIDERS: PCP Physician Assistant; Referring Provider Physician Assistant; Visit Provider Urology ==

== ENCOUNTER 2024-06-30 15:40 | Outpatient (REF) | payer MEDICARE, MEDICAID, SELFPAY | END 2024-06-30 15:41 | disposition home or self-care (01) | LOC: LBN 15:40 | PROVIDERS: PCP Physician Assistant; Visit Provider Urology | DX: R33.9 Retention of urine, unspecified (principal) | CPT/HCPCS: 87077; 87086; 87186 ==

== ENCOUNTER 2024-06-30 16:10 | Emergency (ER) | payer MEDICARE, MEDICAID, SELFPAY ==
[2024-06-30] VITALS (38 sets, daily range): BP systolic 83–156; BP diastolic 24–131; PULSE 84–126; RESP 7–37; TEMP 38.9; O2SAT 92–99
--- NOTE | 2024-06-30 16:30 | DI.CT_ITS ---
Exam(s) CT CHEST/ABD/PEL W EXAM: CT CHEST/ABD/PEL W CLINICAL HISTORY: concern for sepsis in nonverbal pt. TECHNIQUE: Imaging Protocol: Axial computed tomography images with coronal and sagittal reformatted images were created and reviewed. Computer aided detection (CAD) was utilized. CONTRAST MATERIAL: Intravenous: Omnipaque 350 Contrast volume:100 ml Oral: no COMPARISON: CT CT ABDOMEN PELVIS W from 05/26/2024 FINDINGS: CHEST: Pulmonary parenchyma: Expiratory changes. Mild respiratory motion. No consolidation. No dominant m easurable mass. Tracheobronchial tree: No bronchiectasis. No mucous plugging.No bronchial wall thickening. Pleura: No effusion or pneumothorax. Mediastinum: Large hiatal hernia. Pulmonary arteries: No visible emboli. Cardiovascular: Heart size is within normal limits. Moderate coronary artery calcifications. No per icardial effusion. Thoracic aorta non-dilated. Bones: Unremarkable for age. No lytic or blastic lesions.No compression fractures. Soft tissues: Unremarkable. ABDOMEN and PELVIS: Liver: Normal density. No suspicious mass. Gallbladder and biliary tract: No evidence of stones or wall thickening. No biliary dilatation. Pancreas: Normal density, no abnormal calcifications or inflammatory process. Spleen: Mildly enlarged at 14.5 cm in length. Normal configuration. No focal lesions. Normal densi ty. Kidneys: Normal size, contour and axis. No radiodense stones. No obstructive uropathy. Right renal cyst again noted. No suspicious masses seen. Adrenal glands: No masses seen. Aorta: Abdominal portion non-dilated. Lymph nodes: Within normal limits. Soft tissues: Unremarkable. Bladder: Butcher catheter within bladder, minimally distended. No gross wall thickening. Bowel: No obstruction or bowel wall thickening. Normal quantity fecal material. Peritoneal cavity: No ascites. No focal collection. No mesenteric inflammatory response. No free ai r. Bones: Unremarkable for age. Reproductive organs: Unremarkable for age. IMPRESSION: No acute abnormality in the chest, abdomen or pelvis. RADIATION DOSE DELIVERED: Total DLP Total DLP Total DLP DATA REPOSITORY: All CT scans at this facility are submitted to the National Radiology Data Registry (NRDR) Dose Index Registry (DIR) with the [employer] (ACR). RADIATION OPTIMIZATION: All CT scans at this facility use at least one of these dose optimization te chniques: automated exposure control; mA and/or kV adjustment per patient size (includes targeted exa ms where dose is matched to clinical indication); or iterative reconstruction.
--- NOTE | 2024-06-30 16:40 | W.ED.GENAD ---
Discharge Plan Disposition Patient Disposition: Home Discharge Details Clinical Impression: Influenza A Primary Care Provider: Alexi Briceno ED Provider: [facility] Home Meds and New Rx's Prescriptions: No Action sertraline 25 mg tablet 25 mg PO DAILY Patient Comments: 11/16/23 Carer reports pt does not take this. FS RN fluoxetine 20 mg capsule 40 mg PO DAILY calcium carbonate-vit D3-min 600 mg calcium- 400 unit tablet 2 tab PO DAILY atorvastatin 20 mg tablet 20 mg PO DAILY All Day Allergy (cetirizine) 10 mg capsule 10 mg PO DAILY PRN (DME) diaper,brief,adult,disposable Misc See Rx Instructions .ROUTE .MEDSUPPLY Qty: 60 11RF Rx Instructions: active style size large 2 briefs/day metformin 500 mg tablet 500 mg PO BID tamsulosin 0.4 mg capsule See Rx Instructions .ROUTE .COMPLEX Qty: 56 11RF Dose Instruction: TAKE 2 CAPSULES BY MOUTH DAILY 1 HOUR AFTER SUPPER Rx Instructions: TAKE 2 CAPSULES BY MOUTH DAILY 1 HOUR AFTER SUPPER risperidone 1 mg tablet 1 mg PO DAILY docusate sodium [Colace] 100 mg capsule 100 mg PO DAILY Qty: 30 0RF omega 4-shk-nem-fish oil [Fish Oil] 1,000 mg (120 mg-180 mg) capsule 2 cap PO DAILY melatonin 3 mg capsule 3 mg PO HS PRN omeprazole 20 mg capsule,delayed release(DR/EC) 20 mg PO DAILY PRN Discharge Instructions Instructions: Flu Additional Instructions: Please call your primary care provider to schedule follow-up appointment within the week for reassessment. It is very important that Marion stays well-hydrated. Offer him plenty of fluids throughout the day. Tylenol ibuprofen may be used for fever/body aches as needed. Continue to monitor urine output. Return to emergency care if he has decreased urine output, appears dehydrated, has difficulty breathing, is unable to keep down fluids, or if you are very worried and need him to be rechecked again immediately Referrals: Alexi Briceno [Primary Care Provider] - Discharge Data Discharge Date/Time-TO BE ENTERED AT DEPARTURE: 06/30/24 21:44 HPI General Date/Time Provider Initiated Documentation: 06/30/24 16:16. HPI Narrative: Marion is a 58 year old male who presents to the emergency department today for evaluation of not feeling well with decreased urine output. Caregiver Marion reports that he had a decreased appetite this morning, only drank his coffee. Today while at [employer] he was complaining of lower back pain and did not eat his entire lunch; low grade fever of 99.2. Mild cough noted this afternoon by caregiver. Caregivers not quite sure when he last urinated, he usually goes independently. Seen today by urologist Dr. Vance who placed the catheter, concern for sepsis. He is not as responsive to questions as his usual self. HPI limited due to nonverbal patient. Denies headache, difficulty breathing, cough, vomiting, change in bowel movements. He has had chronic lower back pain for the last 6+ weeks, unsure of etiology. Past medical history is significant for autism and history of LUTS. Physical exam remarkable for nonverbal patient. Tachycardia noted, heart rate in 110s. Easy work of breathing, lung sounds clear bilaterally. No CVA tenderness. Abdomen is soft, nondistended, nontender to palpation with normal active bowel sounds. Moist mucous membranes. D/dx includes but is not limited to: Sepsis due to occult infection such as pneumonia, intra-abdominal pathology such as diverticulitis, dehydration, kidney dysfunction, viral illness such as COVID-19 or flu. Patient meets SIRS criteria, sepsis bundle initiated with administration of cefepime and vancomycin for likely intra-abdominal pathology. I independently interpreted the following tests: CBC reassuring, anemia unchanged from baseline. CMP reassuring, no BHAVYA noted. Mild hypomagnesemia, 1.7. UA negative for UTI. Flu/COVID/RSV took a while to come back, positive for influenza A. CT chest/abdomen/pelvis performed, no acute abnormality noted. While in the emergency department, Marion received IV antibiotics, ibuprofen, and lorazepam for anxiety (this is his usual as needed). He was able to take p.o. fluids without difficulty, tachycardia resolved. History and presentation c/w influenza A. No red flags concerning for dehydration or electrolyte imbalance. Marion did produce urine output while in the emergency department, it drained from the Butcher catheter in place because it was not fully clamped. Reviewed discharge instructions with patient's caregiver, including symptomatic management, importance of good hydration, use of Tylenol and ibuprofen for fever/body aches, and red flags indicating need for return to emergency care Related Data Home Medications ?Medication ?Instructions ?Recorded ?Confirmed atorvastatin 20 mg tablet 20 mg PO DAILY 09/02/21 06/30/24 calcium 600 mg (as carbonate)-vit 2 tab PO DAILY 09/02/21 06/30/24 D3 10 mcg (400 unit)-minerals tablet cetirizine 10 mg capsule (All Day 10 mg PO DAILY PRN 09/02/21 06/30/24 Allergy (cetirizine)) sertraline 25 mg tablet 25 mg PO DAILY 09/12/22 06/30/24 diaper,brief,adult,disposable #60 ea 01/09/23 06/30/24 fluoxetine 20 mg capsule 40 mg PO DAILY 03/13/23 06/30/24 melatonin 3 mg capsule 3 mg PO HS PRN 11/15/23 06/30/24 omega 7-gyx-blh-fish oil 1,000 mg 2 cap PO DAILY 11/15/23 06/30/24 (120 mg-180 mg) capsule (Fish Oil) metformin 500 mg tablet 500 mg PO BID 02/06/24 06/30/24 omeprazole 20 mg capsule,delayed 20 mg PO DAILY PRN 02/06/24 06/30/24 release docusate sodium 100 mg capsule 100 mg PO DAILY #30 caps 05/26/24 06/30/24 (Colace) risperidone 1 mg tablet 1 mg PO DAILY 05/26/24 06/30/24 tamsulosin 0.4 mg capsule See Rx Instructions .Route 06/10/24 06/30/24 .COMPLEX #56 caps Previous Rx's ?Medication ?Instructions ?Recorded diaper,brief,adult,disposable #60 ea 01/09/23 docusate sodium 100 mg capsule 100 mg PO DAILY #30 caps 05/26/24 (Colace) tamsulosin 0.4 mg capsule See Rx Instructions .Route 06/10/24 .COMPLEX #56 caps Allergies Allergy/AdvReac Type Severity Reaction Status Date / Time Penicillins Allergy Unknown Verified 06/30/24 16:17 General Stated Complaint: Fever RHYS: 3 Review of Systems Narrative: see HPI Exam Const General: cooperative, comfortable, no acute distress and well groomed Nutritional Appearance: average body habitus Orientation: alert Limitations: other limitations (Not conversant at baseline due to autism ) HENMT Head: normal to inspection General nose exam: external nose normal Face and sinus: normal facial exam Mouth: oral mucosae normal and moist mucous membranes Neck Neck: normal visual inspection, full ROM and no lymphadenopathy Resp Effort & Inspection: normal respiratory effort Auscultation: clear to auscultation bilaterally Cardio Rate: tachycardic Rhythm: regular rhythm GI Inspection: normal to inspection and non-distended Palpation: soft, not firm, no guarding, not rigid and nontender Course Vital Signs Vital signs: Vital Signs Temperature 38.9 C H 06/30/24 16:15 Pulse 116 H 06/30/24 16:15 Respiratory Rate 20 06/30/24 16:15 Blood Pressure 148/86 H 06/30/24 16:15 Pulse Oximetry 94 06/30/24 16:15 Temperature 38.9 C H 06/30/24 16:17 Pulse 116 H 06/30/24 16:17 Respiratory Rate 20 06/30/24 16:17 Blood Pressure 148/86 H 06/30/24 16:17 Blood Pressure Position Sitting 06/30/24 16:17 Pulse Oximetry 94 06/30/24 16:17 Oxygen Delivery Method Room Air 06/30/24 16:17 Oxygen Flow Rate 0 06/30/24 16:17 Lab/Test Results Lab/Test Results: 06/30/24 16:18 Blood Blood Culture - Pending 06/30/24 16:18 Blood Blood Culture - Pending Medical Decision Making Imaging Data Radiologic Study: Radiologist's impression: Exam(s) CT CHEST/ABD/PEL W EXAM: CT CHEST/ABD/PEL W CLINICAL HISTORY: concern for sepsis in nonverbal pt. TECHNIQUE: Imaging Protocol: Axial computed tomography images with coronal and sagittal reformatted images were created and reviewed. Computer aided detection (CAD) was utilized. CONTRAST MATERIAL: Intravenous: Omnipaque 350 Contrast volume:100 ml Oral: no COMPARISON: CT CT ABDOMEN PELVIS W from 05/26/2024 FINDINGS: CHEST: Pulmonary parenchyma: Expiratory changes. Mild respiratory motion. No consolidation. No dominant measurable mass. Tracheobronchial tree: No bronchiectasis. No mucous plugging.No bronchial wall thickening. Pleura: No effusion or pneumothorax. Mediastinum: Large hiatal hernia. Pulmonary arteries: No visible emboli. Cardiovascular: Heart size is within normal limits. Moderate coronary artery calcifications. No pericardial effusion. Thoracic aorta non-dilated. Bones: Unremarkable for age. No lytic or blastic lesions.No compression fractures. Soft tissues: Unremarkable. ABDOMEN and PELVIS: Liver: Normal density. No suspicious mass. Gallbladder and biliary tract: No evidence of stones or wall thickening. No biliary dilatation. Pancreas: Normal density, no abnormal calcifications or inflammatory process. Spleen: Mildly enlarged at 14.5 cm in length. Normal configuration. No focal lesions. Normal density. Kidneys: Normal size, contour and axis. No radiodense stones. No obstructive uropathy. Right renal cyst again noted. No suspicious masses seen. Adrenal glands: No masses seen. Aorta: Abdominal portion non-dilated. Lymph nodes: Within normal limits. Soft tissues: Unremarkable. Bladder: Butcher catheter within bladder, minimally distended. No gross wall thickening. Bowel: No obstruction or bowel wall thickening. Normal quantity fecal material. Peritoneal cavity: No ascites. No focal collection. No mesenteric inflammatory response. No free air. Bones: Unremarkable for age. Reproductive organs: Unremarkable for age. IMPRESSION: No acute abnormality in the chest, abdomen or pelvis. Quality:SDOH Health Related Social Needs: No Data to Display PFSH All Active Problems (Updated 06/30/24 @ 21:36 by Tata Camejo) Influenza A (Acute) Fever (Acute) Urinary retention with incomplete bladder emptying (Acute) Incontinence of urine (Acute) Lower urinary tract symptoms (LUTS) (Acute) Serrated adenoma of colon (Acute) Tubular adenoma of colon (Acute) Hyperplastic colon polyp (Acute) Encounter for colorectal cancer screening (Acute) Positive colorectal cancer screening using Cologuard test (Acute) Medical History (Updated 06/30/24 @ 21:36 by Tata Camejo) Diabetes HLD (hyperlipidemia) Autistic disorder Low verbal 2-3 word sentences. Per caregiver he understands concepts well, he is very very smart, just he is not able to communicate his wants and needs AWA (generalized anxiety disorder) GERD (gastroesophageal reflux disease) Sleep apnea Elevated PSA Onychomycosis Surgical History (Updated 11/16/23 @ 12:10 by Michael Viveros MD) History of colonoscopy (~11/2021) History of appendectomy Social History Smoking/Tobacco Use Status: Never Smoking risk assessment performed?: Yes Alcohol Intake: never Drug use: Never Substance use type: does not use Housing: house Additional Social history: unable to assess [facility]
[2024-06-30] MEDS: LORazepam 1 MG TAB PO (16:59)
[2024-06-30 17:14] LABS: Lactate 1.2 mmol/L (<or=2.0)
[2024-06-30] MEDS: Normal Saline 1,000 ML 1000 ML IV (17:17)
[2024-06-30 17:18] LABS: Abs Immature Grans 0.04 10^3/uL (0.0-0.06); Absolute Basophil Count 0.02 10^3/uL (0.0-0.2); Absolute Eosinophil Count 0.03 10^3/uL (0.0-0.7); Absolute Monocyte Count 0.47 10^3/uL (0.1-0.8); Absolute Neutrophil Count 3.63 10^3/uL (1.2-6.7); Basophils % 0.4 %; Eosinophils % 0.7 %; HCT 30.9 % (40.0-50.0); HGB 9.9 g/dL (13.5-17.5); Immature Grans % 0.9 %; Lymphocytes % 8.7 %; MCH 23.1 pg (27.0-33.0); MCV 72 fL (80-95); MPV 8.6 fL (8.0-11.0); Monocytes % 10.2 %; Neutrophils % 79.1 %; Platelet Count 144 10^3/uL (130-400); RBC 4.29 10^6/uL (4.36-5.78); RDW 15.4 % (11.8-14.1); RDW-SD 39.5 fL; WBC 4.59 10^3/uL (4.4-10.8)
[2024-06-30 17:25] LABS: Diff Comment RBC Morph Reviewed
[2024-06-30 17:26] LABS: Microcytosis 1+
[2024-06-30 17:33] LABS: ALT 28 U/L (16-63); AST 16 U/L (15-37); Albumin 3.2 g/dL (3.4-5.0); Alkaline Phosphatase 112 U/L (46-116); Anion Gap 10.1 mmol/L (3-11); BUN 13 mg/dL (7-18); Bilirubin, Total 0.71 mg/dL (0.2-1.0); CO2 25.9 mmol/L (21.0-32.0); Calcium 9.7 mg/dL (8.5-10.1); Chloride 100 mmol/L (98-107); Estimated GFR 87.24 (mL/min/1.73m2); Glucose 116 mg/dL (74-106); Magnesium 1.7 mg/dL (1.8-2.4); Potassium 3.8 mmol/L (3.5-5.1); Sodium 136 mmol/L (136-145); Total Protein 7.3 g/dL (6.4-8.2)
[2024-06-30] MEDS: Normal Saline - Diluent 50 ML VIAL IJ (17:35)
[2024-06-30] MEDS: Omnipaque 350 MG/ML 100 ML BTL IJ (17:36)
[2024-06-30] MEDS: CEFEPIME 2 GM in Normal Saline 100 ML IVPB (18:11)
[2024-06-30] MEDS: VANCOMYCIN/WATER (PEG) 1.25 GM/250 ML BAG IVPB (18:44)
[2024-06-30] MEDS: ACETAMINOPHEN 1,000 MG/100 ML BAG 400 MG IVPB (18:44)
[2024-06-30 20:02] LABS: COVID-19 PCR Negative (Negative); Influenza A PCR Positive (Negative); Influenza B PCR Negative (Negative); RSV PCR Negative (Negative)
[2024-06-30 20:07] LABS: Source Nasopharynx
[2024-06-30 20:45] LABS: Bilirubin Negative (Negative); Blood Trace-lysed (Negative); Clarity Turbid (Clear); Glucose Negative (Negative); Ketones Negative (Negative); Leukocyte Esterase Trace (Negative); Nitrite Negative (Negative)
[2024-06-30 20:59] LABS: Bacteria Rare HPF (Negative); Crystals Many Amorphous HPF (Negative); Epithelial Cells Rare HPF (Negative); RBC 0-2 HPF (0-2); WBC 0-2 HPF (0-5)
[2024-06-30 21:00] LABS: C & S Indicated? No; Casts Negative LPF (Negative); Mucus Negative (Negative)
[2024-06-30] MEDS: Ibuprofen 600 MG TAB PO (21:14)
== END 2024-06-30 21:44 | disposition home or self-care (01) ==
PROVIDERS: Emergency Provider Nurse Practitioner Family; PCP Physician Assistant
DX: J10.1 Influenza due to other identified influenza virus with other respiratory manifestations (principal); R50.9 Fever, unspecified
CPT/HCPCS: 36415; 51702; 74177; 76857; 80053; 81003; 87040; 87637; 96365; 96366; 96367; 99215; 99285; 71260; 81015; 83605; 83735; 85025; 99284; J0131; J0692; J3372; J3490

== ENCOUNTER 2024-07-07 15:34 | Outpatient (REF) | payer MEDICARE, MEDICAID, SELFPAY ==
[2024-07-07 21:51] LABS: HCT 32.1 % (40.0-50.0); MCH 22.8 pg (27.0-33.0); MCHC 31.2 % (32.0-36.0); MPV 9.3 fL (8.0-11.0); Platelet Count 214 10^3/uL (130-400); RBC 4.38 10^6/uL (4.36-5.78); RDW-SD 40.5 fL; WBC 4.66 10^3/uL (4.4-10.8)
[2024-07-07 22:08] LABS: Iron 23 ug/dL (65-175); Total Iron Binding Capacity 311 ug/dL (250-450); Transferrin Sat 7 % (20-55)
[2024-07-07 22:13] LABS: MCV 73 fL (80-95); RDW 15.4 % (11.8-14.1)
[2024-07-07 22:21] LABS: Ferritin 56 ng/mL (26-388)
== END 2024-07-07 15:35 | disposition home or self-care (01) ==
LOC: NCHCN 15:34
PROVIDERS: PCP Physician Assistant; Visit Provider Physician Assistant
DX: D64.9 Anemia, unspecified (principal)
CPT/HCPCS: 85027; 82728; 83540; 83550; 85045

== ENCOUNTER 2024-07-15 16:35 | Outpatient (REF) | payer MEDICARE, MEDICAID, SELFPAY ==
[2024-07-15 16:53] LABS: Bilirubin Negative (Negative); Blood Negative (Negative); Clarity Clear (Clear); Glucose Negative (Negative); Ketones Negative (Negative); Leukocyte Esterase Negative (Negative); Nitrite Negative (Negative); Specific Gravity >= 1.030 (1.005-1.025); Urobilinogen 0.2 mg/dL (Up to 0.2); pH 5.5 (5-8)
== END 2024-07-15 16:36 | disposition home or self-care (01) ==
LOC: LBN 16:35
PROVIDERS: Urology; PCP Physician Assistant; Visit Provider Nurse Practitioner Gerontology
DX: R33.9 Retention of urine, unspecified (principal)
CPT/HCPCS: 81003

== ENCOUNTER 2024-07-29 02:09 | Outpatient (CLI) | payer MEDICARE, MEDICAID, SELFPAY ==
[2024-07-29 11:37] LABS: Calculated LDL 62 mg/dL (<100); Cholesterol 124 mg/dL (<200); HDL Cholesterol 40 mg/dL (>or=40); T4 7.4 ug/dL (4.7-13.3); TSH 1.26 uIU/mL (0.36-3.74); Triglyceride 113 mg/dL (<150); Vitamin B12 828 pg/mL (193-986); Vitamin D 25 Total 40 ng/mL (30-100)
[2024-07-29 11:46] LABS: Hemoglobin A1C 5.7 % (<5.7)
[2024-07-29 19:57] LABS: T3, Total 164 ng/dL (97-169)
[2024-07-30 12:58] LABS: IgA 148 mg/dL (85-499); Interpretation (See Note); Tissue Transglutaminase IgA <4.0 CU (<20.0)
[2024-08-01 11:47] LABS: Iron 71 ug/dL (65-175); Total Iron Binding Capacity 385 ug/dL (250-450); Transferrin Sat 18 % (20-55)
[2024-08-01 11:59] LABS: Ferritin 20 ng/mL (26-388)
== END 2024-07-29 02:10 | disposition home or self-care (01) ==
PROVIDERS: PCP Physician Assistant; Visit Provider Psychiatry & Neurology Psychiatry
DX: Z79.899 Other long term (current) drug therapy (principal); D64.9 Anemia, unspecified
CPT/HCPCS: 36415; 80061; 82306; 82784; 83516; 82607; 82728; 83036; 83540; 83550; 84436; 84443; 84480

== ENCOUNTER → 2024-09-10 15:11 | Outpatient (BNVA) | payer MEDICARE, MEDICAID, SELFPAY | PROVIDERS: PCP Physician Assistant; Referring Provider Physician Assistant; Visit Provider Nurse Practitioner Gerontology | DX: R39.9 Unspecified symptoms and signs involving the genitourinary system (principal); R32 Unspecified urinary incontinence; R97.20 Elevated prostate specific antigen [PSA]; R53.83 Other fatigue; N40.1 Benign prostatic hyperplasia with lower urinary tract symptoms; B96.89 Other specified bacterial agents as the cause of diseases classified elsewhere | CPT/HCPCS: 36415; 51798; 99214; 81003; 81015; 84153; 87086 ==

== ENCOUNTER 2024-09-10 17:06 | Outpatient (CLI) | payer MEDICARE, MEDICAID, SELFPAY ==
[2024-09-10 16:31] LABS: Bilirubin Negative (Negative); Blood Negative (Negative); Clarity Clear (Clear); Glucose Negative (Negative); Ketones Trace mg/dL (Negative); Leukocyte Esterase Trace (Negative); Nitrite Negative (Negative); Urobilinogen 0.2 mg/dL (Up to 0.2); pH 5.5 (5-8)
[2024-09-10 16:41] LABS: Bacteria Few HPF (Negative); Casts Negative LPF (Negative); Crystals Few Amorphous HPF (Negative); Epithelial Cells Rare HPF (Negative); Mucus Trace (Negative); RBC Negative HPF (0-2)
[2024-09-10 16:42] LABS: C & S Indicated? C&S Done As Ordered
[2024-09-11 19:20] LABS: PSA, Diagnostic 6.6 ng/mL (<=3.5)
== END 2024-09-10 17:07 | disposition home or self-care (01) ==
LOC: LBO 17:06
PROVIDERS: PCP Physician Assistant; Visit Provider Nurse Practitioner Gerontology
DX: R53.83 Other fatigue (principal); R33.9 Retention of urine, unspecified; R39.9 Unspecified symptoms and signs involving the genitourinary system; R97.20 Elevated prostate specific antigen [PSA]
CPT/HCPCS: 36415; 81003; 81015; 84153; 87086

== ENCOUNTER → 2024-09-11 10:58 | Outpatient (BNVA) | payer MEDICARE, MEDICAID, SELFPAY | PROVIDERS: PCP Physician Assistant; Referring Provider Physician Assistant; Visit Provider Physical Therapy Assistant | DX: D64.9 Anemia, unspecified (principal); Z86.0101 Personal history of adenomatous and serrated colon polyps | CPT/HCPCS: S0285 ==

== ENCOUNTER 2024-09-23 06:58 | Day surgery (SDC) | payer MEDICARE, MEDICAID, SELFPAY ==
--- NOTE | 2024-09-22 07:36 | W.PM.DSUDISC ---
Date of service: 09/23/24 Discharge Plan Disposition Patient Disposition: Home Condition: Good Discharge Details Reason For Visit: EGD and colonoscopy Attending Provider: Saleem Kaur Primary Care Provider: Alexi Briceno Home Meds and New Rx's Prescriptions: Continued clonazepam 1 mg tablet 1 mg PO BID hydroxyzine HCl 10 mg tablet 10 mg PO QHS PRN calcium carbonate-vit D3-min 600 mg calcium- 400 unit tablet 2 tab PO DAILY atorvastatin 20 mg tablet 20 mg PO DAILY All Day Allergy (cetirizine) 10 mg capsule 10 mg PO DAILY PRN (DME) diaper,brief,adult,disposable Misc See Rx Instructions .ROUTE .MEDSUPPLY Qty: 60 11RF Rx Instructions: active style size large 2 briefs/day metformin 500 mg tablet 500 mg PO BID tamsulosin 0.4 mg capsule See Rx Instructions .ROUTE .COMPLEX Qty: 56 11RF Dose Instruction: TAKE 2 CAPSULES BY MOUTH DAILY 1 HOUR AFTER SUPPER Rx Instructions: TAKE 2 CAPSULES BY MOUTH DAILY 1 HOUR AFTER SUPPER fluoxetine 20 mg capsule 60 mg PO DAILY bisoprolol fumarate 10 mg tablet 10 mg PO HS Clear Fiber 3 gram/4 gram powder 3 g PO DAILY PRN ferrous sulfate [Feosol] 325 mg (65 mg iron) tablet 325 mg PO DAILY docusate sodium [Colace] 100 mg capsule 100 mg PO DAILY Qty: 30 0RF omega 4-wia-wdi-fish oil [Fish Oil] 1,000 mg (120 mg-180 mg) capsule 2 cap PO DAILY melatonin 3 mg capsule 3 mg PO HS PRN omeprazole 20 mg capsule,delayed release(DR/EC) 20 mg PO DAILY PRN Discontinued bisacodyl [Dulcolax (bisacodyl)] 5 mg tablet,delayed release (DR/EC) 5 mg PO ONCE Qty: 4 0RF Rx Instructions: Take per colonoscopy instructions provided by ordering providers office polyethylene glycol 3350 17 gram/dose powder 17 g PO ONCE Qty: 238 0RF Rx Instructions: Take per colonoscopy instructions provided by ordering providers office Discharge Instructions Instructions: Peptic ulcers, Hiatal hernia, Colon polyps Additional Instructions: Marion, it was good to meet you and the rest of your support network today. I hope you are comfortable through the procedure and you feel well soon. Things went very smoothly. With regards to your upper endoscopy, there are a few findings. First you have a large hiatal hernia. This occurs when the top part of your stomach slips above your diaphragm, which is your breathing muscle. There is a surgery to fix this, and certainly based on the size of your hernia, that would be a reasonable consideration. However, the operation is quite extensive, and good patient selection with clear expectation of outcomes is quite important. I do not do that operation, but I be more than happy to refer you to [facility] if you would like to get their opinion. The second is that you have 2 small ulcers in your stomach. One is at the top part of your stomach, the other is closer to where the stomach attaches to the small intestine. Both of these appear pretty typical for simple ulcers. I did do some biopsies of these to be safe today. Those biopsies will take about a week or 2 to get back, but certainly if they turn up any useful information, I will call you. Generally, the treatment of stomach ulcers is proton pump inhibitor therapy. You are already on 1 of these medications. Patients often times use sucralfate in addition to the proton pump inhibitors, and it appears they have a prescription for this as well. These could certainly explain your chronic anemia. With regards to the colonoscopy, I did find, and removed 3 polyps today. These will all be sent off for testing since polyps, different types, and we use the nature of the polyp to help guide the timing of future colonoscopies. These results will come back with the biopsies mentioned above. Once I have all that information, my office will be in touch. If you need anything in the meantime, please do not hesitate to ask. 1. If tolerated, consume a soft, low fiber diet for 1-2 days. 2[address] Do not drive, drink alcohol, operate machinery, make critical decisions, or do activities that require coordination or balance for 24 hours. 3. Because air was put into your colon during the procedure, expelling air from your rectum (passing gas or farting) is normal. 4. You may not have a bowel movement for 1-3 days because of the colonoscopy prep. This is normal. 5. You may experience a sore throat for 24 to 48 hours. You may use throat lozenges or gargle with warm salt water to relieve the discomfort. 6. Because air was put into your stomach during the procedure, you may experience some belching. 7. Go directly to the emergency room if you notice any of the following: Develop chills (warm to touch), or if you have a thermometer and your temperature is above 101 Difficulty breathing or difficultly swallowing Persistent vomiting Severe abdominal pain, other than gas cramps Severe chest pain Black, tarry stools Any bleeding ? exceeding one tablespoon 8. Call your physician if the site where your intravenous was started becomes red, swollen, painful, and warm to touch. 9. Your physician has reviewed your pre-procedure medications. Please continue to take those medications as previously ordered. You will be given specific information/education regarding any changes to your medications before leaving. Stand Alone Forms: Anesthesia Discharge InstDavid Kelly (DSU) Activity:: Activity as Tolerated Diet:: As Tolerated Discharge Orders Discharge Orders: Discharge Order (Routine); Ordered 09/22/24 Ordered By: Saleem Kaur DS: Diagnosis Discharge Diagnosis (1) Anemia: Status: Chronic Asessment and Plan: Follow-up on biopsy result
--- NOTE | 2024-09-22 07:45 | ENDO_ITS ---
Date of service: 09/23/24 Time of Service: 09:30 Endoscopy Report DATE OF PROCEDURE: 09/23/24 PRE-OP DIAGNOSIS: anemia POST-OP DIAGNOSIS: other (Who grade 4 hiatal hernia, peptic ulcer disease; colon polyps) PROCEDURE: EGD with biopsies and colonoscopy with polypectomy SURGEON: Saleem Kaur ANESTHESIA TYPE: General:No Airway ESTIMATED BLOOD LOSS: 5 PATHOLOGY: other (Gastric ulcer, antral ulcer, gastric body biopsies, biopsies of GE junction; 0.25 cm ascending colon polyp, 0.25 cm polyp at 90 cm, 0.25 cm polyp at 25 cm) COMPLICATIONS: None DISPOSITION: same day INDICATIONS: Marion is a 58 year old man with anemia of uncertain etiology. He also has a history of adenomatous polyps. PREP: Miralax/Dulcolax PROCEDURE START TIME: 08:55 PROCEDURE END TIME: 09:13 COLONOSCOPY RETRACTION TIME: 6 FINDINGS: Will grade 4 hiatal hernia, gastric cardia ulcer, gastric antral ulcer; colon polyps PROCEDURE DESCRIPTION: After the initiation of monitored anesthetic care, and with the assistance of a bite block, I advanced a standard gastroscope through the mouth past the hypopharynx and into the esophagus.? Under the direct vision of the scope, I advanced down the esophagus towards the stomach.? The GE junction measures about 36 cm from the incisors. The Z-line is regular. There is a significant portion of the gastric cardia and body herniated above the diaphragm hiatus. I performed retroflexion. There is an ulcer in the gastric cardia, just a few centimeters distal to the Z-line. Is not bleeding. It is about 0.25 cm in diameter. Edges are flat. There are no visible vessels. I did perform biopsies of this using cold forceps. There was minimal bleeding. The stomach was insufflated into the rugae were obliterated, and retroflexion was performed below the diaphragm hiatus. I did not appreciate any mucosal abnormalities along the hiatus. There is a punctate ulcer in the gastric antrum as well. There is no bleeding here. It is flat, and a less than 0.25 cm. Cold forceps biopsies were performed of this as well. I advanced down through the pylorus into the duodenum which was normal and healthy appearing. I then brought the camera back up into the stomach and perform some nondirected biopsies of the g astric body to rule out H. pylori. The camera was then brought back up to the GE junction, cold forceps biopsies were performed here as well. I did not appreciate any clinical features consistent with Conner's esophagus. The stomach was then emptied as the camera was brought back out along the length of the esophagus 1 last time. No other abnormalities were appreciated. With Marion in the left lateral decubitus position, I performed an anorectal exam.? Perineum and skin were normal, as was the anal verge.? Next, I performed a digital rectal exam.? This felt normal.? Next, I advanced a colonoscope into the rectal vault.? I performed retroflexion.? This was normal..? Using insufflation, I then advanced the colonoscope beyond the rectal folds and into the sigmoid colon before advancing towards the cecum.? The scope was noted to be in the cecum by identification of the ileocecal valve and appendiceal orifice.? I then began withdrawing the colonoscope using repeated irrigation as necessary for full evaluation of the colonic mucosa. Within the ascending colon was a 0.25 cm pedunculated polyp. This was removed with cold forceps with minimal bleeding. Another polyp was found at 90 cm beyond the anal verge. This was also about 0.25 cm and pedunculated. This was removed with cold forceps as well. One last polyp was found at 25 cm beyond the anal verge. Similar to the first 2, this was pedunculated, and less than 0.25 cm. This was also retrieved with cold forceps without any problems. Once the scope was withdrawn to the level of the rectum, great care was taken to examine portions of the rectal folds.? Finally, the scope was withdrawn and the patient was brought to the same-day surgery recovery unit as the anesthetic wore off. ?The findings and instructions were shared with the patient prior to discharge.
[2024-09-23 07:21] VITALS: BP 121/80; PULSE 61; RESP 16; TEMP 36.4; O2SAT 98
[2024-09-23] MEDS: Lactated Ringers 1,000 ML 80 ML IV (07:34)
--- NOTE | 2024-09-23 08:30 | W.ANESPRE ---
General Info Date of Service Date Performed: 09/23/24 Height: 5 ft 6 in Weight: 70.4 kg Body Mass Index (BMI): 25.0 Surgical Procedure: Operation Date: 09/23/24 08:20 Proposed Procedure Side Surgeon p Colonoscopy/Gastroscopy Saleem Kaur MD Actual Procedure Side Surgeon p Colonoscopy/Gastroscopy Not Applicable Saleem Kaur MD Pre-Op Diagnosis Post-Op Diagnosis ANEMIA Meds Allergies and Home Medications Allergies Allergy/AdvReac Type Severity Reaction Status Date / Time Penicillins Allergy Unknown Verified 09/23/24 07:16 Home Medication ?Medication ?Instructions ?Recorded atorvastatin 20 mg tablet 20 mg PO DAILY 09/02/21 calcium 600 mg (as carbonate)-vit 2 tab PO DAILY 09/02/21 D3 10 mcg (400 unit)-minerals tablet cetirizine 10 mg capsule (All Day 10 mg PO DAILY PRN 09/02/21 Allergy (cetirizine)) diaper,brief,adult,disposable #60 ea 01/09/23 melatonin 3 mg capsule 3 mg PO HS PRN 11/15/23 omega 3-khr-gbg-fish oil 1,000 mg 2 cap PO DAILY 11/15/23 (120 mg-180 mg) capsule (Fish Oil) metformin 500 mg tablet 500 mg PO BID 02/06/24 omeprazole 20 mg capsule,delayed 20 mg PO DAILY PRN 02/06/24 release docusate sodium 100 mg capsule 100 mg PO DAILY #30 caps 05/26/24 (Colace) tamsulosin 0.4 mg capsule See Rx Instructions .Route 06/10/24 .COMPLEX #56 caps bisoprolol fumarate 10 mg tablet 10 mg PO HS 08/21/24 dextrin 3 gram/4 gram oral powder 3 g PO DAILY PRN 08/21/24 (Clear Fiber) ferrous sulfate 325 mg (65 mg 325 mg PO DAILY 08/21/24 iron) tablet (Feosol) fluoxetine 20 mg capsule 60 mg PO DAILY 08/21/24 clonazepam 1 mg tablet 1 mg PO BID 09/10/24 hydroxyzine HCl 10 mg tablet 10 mg PO QHS PRN 09/10/24 Current Visit Medications: Current Medications Generic Name Dose Route Start Last Admin Trade Name Freq PRN Reason Stop Dose Admin Ringer's Solution 1,000 mls @ 80 mls/hr 09/23/24 06:00 09/23/24 07:34 IV 10/19/24 23:59 80 mls/hr INFUSION HANNA Administration IV Miscellaneous Supplies 1 each 09/23/24 06:00 Iv Access IV 10/19/24 23:59 DIRECTED HANNA Ondansetron HCl 4 mg 09/22/24 07:47 Ondansetron 4 Mg/2 Ml Vial IVP 10/22/24 07:46 Q4H PRN PRN Nausea / Vomiting Sodium Chloride 0 ml 09/23/24 06:00 Normal Saline Flush 10 Ml Syr IV 10/19/24 23:59 PRN PRN Sodium Chloride 0 ml 09/23/24 06:00 Normal Saline 10 Ml Vial IJ 10/19/24 23:59 DIRECTED PRN Sterile Water 0 ml 09/23/24 06:00 Water,Injection,Sterile 10 Ml Vial IJ 10/19/24 23:59 DIRECTED PRN PFSH Active Problems Active Problems: Problem Status Onset Code Anemia Chronic D64.9 Iron deficiency anemia Acute D50.9 Fever Acute R50.9 Urinary retention with incomplete bladder emptying Acute R33.9 Posterior subcapsular age-related cataract, right eye Resolved H25.041 Nuclear age-related cataract, right eye Resolved H25.11 Incontinence of urine Acute R32 Lower urinary tract symptoms (LUTS) Acute R39.9 Serrated adenoma of colon Acute D12.6 Tubular adenoma of colon Acute D12.6 Hyperplastic colon polyp Acute K63.5 Encounter for colorectal cancer screening Acute Z12.11, Z12.12 Positive colorectal cancer screening using Cologuard test Acute R19.5 Medical History Medical History Diabetes HLD (hyperlipidemia) Autistic disorder Low verbal 2-3 word sentences. Per caregiver he understands concepts well, he is very very smart, just he is not able to communicate his wants and needs well. Per pt. states he does not like people to ask him questions-direct all questions to caregiver. AAW (generalized anxiety disorder) GERD (gastroesophageal reflux disease) Sleep apnea Elevated PSA Onychomycosis Surgical History Surgical History History of colonoscopy (~11/2021) History of appendectomy Tobacco Smoking/Tobacco Use Status: Never Alcohol Alcohol Intake: never Substance Use Substance use: Never Substance use type: does not use Vital Signs and Lab Results Vital Signs Most Recent Vital Signs in EMR: Most Recent Vital Signs Temp Pulse Resp BP Pulse Ox 36.4 C L 61 16 121/80 98 09/23/24 07:21 09/23/24 07:21 09/23/24 07:21 09/23/24 07:21 09/23/24 07:21 Point of Care Results Point of Care Results: Finger Stick Blood Glucose 91 09/23/24 07:11 Lab Results Blood Type / Crossmatch: No Data to Display Complete Blood Count: No Data to Display Complete Metabolic Panel: No Data to Display Liver Function Panel: No Data to Display Coagulation Panel: No Data to Display Cardiac Panel: No Data to Display Arterial Blood Gas: No Data to Display Venous Blood Gas: No Data to Display Pancreas Panel: No Data to Display Thyroid Panel: No Data to Display Infectious Disease: No Data to Display Blood Cultures: No Data to Display Toxicology Panel: No Data to Display Anesthesia Assessment and Plan Anesthesia History Personal History: No History of Anesthesia Complications Family History: Family History Unknown Exercise Tolerance Exercise Tolerance: Metabolic Equivalents>4 Pertinent Negatives Pertinent Negatives: No Symptoms of GERD Cardiac & Pulmonary Exam Cardiac Exam: Normal S1/S2 Heart Sounds Pulmonary Exam: Clear Bilateral Breath Sounds Implantable Cardiac Device Does patient have a Pacemaker or an ICD?: No Airway Exam Known Difficult Airway: No Mallampati Class: Unable to Assess Mouth Opening: Narrow (< 3cm) Thyromental Distance: Greater than 3 cm Neck Range of Motion: Full ROM Neck Circumference: Normal Teeth Condition: Normal Dentition ASA Classification ASA Score: ASA 3 Emergency Case?: No NPO Status NPO Status: NPO Clears >2 hours, Solids >8 hours Anesthesia Plan Resuscitation Status: Full Code Anesthesia Technique: General Anesthesia Airway Planned: LMA Monitors Used: Standard Monitors Preoperative Comments:: Jolanta, Guardian, provided phone consent to proceed.
[2024-09-23 08:31] VITALS: BMI 25.0
--- NOTE | 2024-09-23 08:40 | BOWEL_PTH ---
PATIENT: Marion Olvera LOC: [facility] U#:[id number] AGE/SX: 58/M ROOM: RE09/23/[address]: Saleem Kaur MD : 1965 BED: DIS: 09/23/2024 SPEC #: [id number] RECD: 09/23/24 12:56 STATUS: VALDEMAR REQ #: [id number] MARCELLUS: 09/23/24 08:[address]: Saleem Kaur DEPT: Surgical Specimen RECD BY: July Whitaker ENTERED: 09/23/24 12:58 SP TYPE: Bowel OTHR DR: Alexi Briceno Tissues: 1 - STOMACH BIOPSY 2 - STOMACH BIOPSY 3 - STOMACH BIOPSY 4 - ESOPHAGUS BIOPSY 5 - BIOPSY BOWEL 6 - BIOPSY BOWEL 7 - BIOPSY BOWEL Procedures: GROSS AND MICRO LEVEL 4 IMMUNOPEROXIDASE STAIN Comments: [id number]
[2024-09-23 09:15] VITALS: BP 121/105; PULSE 55; RESP 17; TEMP 36.3; O2SAT 97
--- NOTE | 2024-09-23 09:30 | W.ANESPOSTOP ---
Postoperative Evaluation Date, Time and Location Date Performed: 09/23/24 Time Performed: 09:30 Patient Location: Day Surgery Unit Vital Signs Most Recent Imported Vital Signs: Most Recent Vital Signs Temp Pulse Resp BP Pulse Ox 36.3 C L 55 L 17 121/105 H 97 09/23/24 09:15 09/23/24 09:15 09/23/24 09:15 09/23/24 09:15 09/23/24 09:15 Pain Score Most Recent Pain Score: Most Recent Pain Score Pain Level 0 09/23/24 09:15 Assessment Mental Status: Awake (Alert & Oriented to Patient Baseline) Airway and Respiratory Function: Patent airway with normal (patient baseline) respiratory exam Cardiovascular Function: Hemodynamically Stable Hydration Status: Adequately Hydrated Nausea & Vomiting: No Nausea or Vomiting Pain: Pt. Denies Any Pain Peripheral Nerve Block: Patient did not receive a nerve block
[2024-09-23 09:50] VITALS: BP 123/75; PULSE 50; RESP 18; TEMP 36.4; O2SAT 99
== END 2024-09-23 10:00 | disposition home or self-care (01) ==
LOC: SUR 06:59
PROVIDERS: PCP Physician Assistant; Visit Provider Surgery
PROC: (CPT 45380; principal; 2024-09-23 08:15)
DX: D64.9 Anemia, unspecified (principal); K44.0 Diaphragmatic hernia with obstruction, without gangrene; D12.2 Benign neoplasm of ascending colon; K29.70 Gastritis, unspecified, without bleeding; K21.00 Gastro-esophageal reflux disease with esophagitis, without bleeding; D12.3 Benign neoplasm of transverse colon; D12.5 Benign neoplasm of sigmoid colon
CPT/HCPCS: 45380; 43239; 88305; 88361; J2704

== ENCOUNTER 2025-01-22 11:32 | Outpatient (CLI) | payer MEDICARE, MEDICAID, SELFPAY ==
[2025-01-22 11:50] LABS: HCT 37.7 % (40.0-50.0); HGB 12.5 g/dL (13.5-17.5); MCH 26.1 pg (27.0-33.0); MCHC 33.2 % (32.0-36.0); MCV 79 fL (80-95); MPV 8.7 fL (8.0-11.0); Platelet Count 193 10^3/uL (130-400); RBC 4.79 10^6/uL (4.36-5.78); RDW 13.7 % (11.8-14.1); RDW-SD 39.2 fL; WBC 5.90 10^3/uL (4.4-10.8)
[2025-01-22 12:01] LABS: Hemoglobin A1C 5.5 % (<5.7)
[2025-01-22 12:41] LABS: Iron 60 ug/dL (65-175); Total Iron Binding Capacity 365 ug/dL (250-450); Transferrin Sat 16 % (20-55)
[2025-01-22 12:51] LABS: Ferritin 18 ng/mL (26-388)
== END 2025-01-22 11:33 | disposition home or self-care (01) ==
LOC: LBO 11:33
PROVIDERS: PCP Physician Assistant; Visit Provider Physician Assistant
DX: D50.9 Iron deficiency anemia, unspecified (principal); E11.9 Type 2 diabetes mellitus without complications
CPT/HCPCS: 36415; 85027; 82728; 83036; 83540; 83550

== ENCOUNTER 2025-03-05 10:15 | Outpatient (CLI) | payer MEDICARE, MEDICAID, SELFPAY ==
[2025-03-05 18:15] LABS: PSA, Screening 7.5 ng/mL (<=3.5)
== END 2025-03-05 10:16 | disposition home or self-care (01) ==
LOC: LBO 10:16
PROVIDERS: PCP Physician Assistant; Visit Provider Nurse Practitioner Gerontology
DX: N40.1 Benign prostatic hyperplasia with lower urinary tract symptoms (principal); R39.9 Unspecified symptoms and signs involving the genitourinary system
CPT/HCPCS: 36415; 84153